=== PATIENT | male | born 1955 ===

== ENCOUNTER 2016-03-01 06:04 | Outpatient (CLI) | payer BC, OTHER ==
[~2016-03-01] VITALS: Ht 167.6 cm; Wt 84.5 kg
[~2016-03-01 06:04] MED LIST: CPR500T PO
== END 2016-03-01 13:42 ==
LOC: PREOP 06:04
PROVIDERS: ATTEND Surgery
DX: Z01.818 Encounter for other preprocedural examination (principal); K57.90 Diverticulosis of intestine, part unspecified, without perforation or abscess without bleeding

== ENCOUNTER 2016-03-05 14:06 | Day surgery (SDC) | payer BC, OTHER ==
[~2016-03-05] VITALS: Ht 167.6 cm; Wt 84.5 kg
--- NOTE | 2016-03-05 14:09 | Pre-Op Note & Conscious Sedat ---
Pre-Operative Progress Note H&P Reviewed The H&P was reviewed, patient examined and no changes noted. Date H&P Reviewed: Mar 05, 2016 Time H&P Reviewed: 14:09 Pre-Op Diagnosis: colovesical fistula Conscious Sedation Pre-Proced ASA Class: 2 Airway Mallampati Classification: (jena appropriate class) I. II. III, IV Lungs Heart ASA score ASA 1: a normal healthy patient ASA 2: a patient with a mild systemic disease (mid diabetes, controlled hypertension, obesity ASA 3: a patient with a severe systemic disease that limits activity (angina , COPD, prior Myocardial infarction) ASA 4: a patient with an incapacitating disease that is a constant threat to life (CHF, renal failure) ASA 5: a moribund patient not expected to survive 24 hrs. (ruptured aneurysm) ASA 6: a declared brain patient whose organs are being harvested. For emergent operations, add the letter E after the classification Grade 1 Sedation Plan: Discussed options with patient/fam Note The patient is an appropriate candidate to undergo the planned procedure, sedation, and anesthesia. The patient immediately re-assessed prior to indication. CLARKE SORIANO MD Mar 05, 2016 2:09 pm
[2016-03-05] MEDS ORDERED: fentaNYL INJECTION 100 MCG/2 ML AMP INJ ONE ×2 (14:14)
[2016-03-05] MEDS ORDERED: NS IV 500 ML 500 ML IV ONE (14:15)
[2016-03-05] MEDS ORDERED: NALOXONE 0.4 MG/ML 1 ML (NARCAN) VIAL IVP PRN (14:15)
[2016-03-05] MEDS ORDERED: FLUMAZENIL (ROMAZICON) 0.1 MG/ML 5 ML VIAL INJ PRN (14:15)
[2016-03-05 14:35] VITALS: BP 161/113
[2016-03-05] MEDS: MIDAZOLAM 2 MG/2 ML (VERSED) VIAL IVP PRN ×3 (14:43→14:55)
[2016-03-05] MEDS: fentaNYL INJECTION 100 MCG/2 ML AMP IVP PRN ×3 (14:45→14:57)
--- NOTE | 2016-03-05 15:09 | Discharge Inst-Simple/Standard ---
Discharge Inst-Standard Discharge Medications New, Converted or Re-Newed RX: Other Patient Instructions/Follow Up Plan of Care/Instructions/FU: to return for surgery as directed Activity as Tolerated: Yes Discharge Diet: No Restrictions CLARKE SORIANO MD Mar 05, 2016 3:09 pm
--- NOTE | 2016-03-05 15:09 | Progress Note-Post Operative ---
Post-Operative Progess Note Pre-Operative Diagnosis colovesical fistula Post-Operative Diagnosis severe sigmoid diverticulosis Post-Op Procedure Note Date of Procedure: Mar 05, 2016 Name of Procedure: flexible sigmoidoscopy Anesthesia Type sedation CLARKE SORIANO MD Mar 05, 2016 3:09 pm
[2016-03-05 15:30] VITALS: BP 102/78
[2016-03-05 16:00] VITALS: BP 122/82
[2016-03-05 16:09] VITALS: BP 122/82
--- NOTE | 2016-03-06 09:03 | PROCEDURE REPORT ---
PROCEDURE PHYSICIAN: CLARKE SORIANO DATE OF PROCEDURE: 03/05/2016 PROCEDURE: Flexible sigmoidoscopy. SURGEON: Dr. Soriano. INDICATION FOR THE PROCEDURE: This gentleman is due to undergo sigmoid resection to manage colovesical fistula due to diverticular disease. He came in for colonoscopy prior to surgery. Informed consent was obtained after reviewing the procedure with him. DESCRIPTION OF PROCEDURE: He was placed in left lateral decubitus position and his vital signs were monitored. Conscious sedation was achieved using Versed and fentanyl. Digital rectal examination was unremarkable. The colonoscope was then introduced into the rectum and advanced to the mid sigmoid colon. Due to severe diverticular disease, the scope could not be advanced further. Therefore, further attempts were abandoned. He tolerated the procedure well and was taken back to the nursing area in a stable condition. IMPRESSION: Colovesical fistula, flexible sigmoidoscopy revealing severe disease. NOTE: The patient is scheduled to undergo minimally invasive resection with anastomosis and a potential temporary loop ileostomy. Job ID: [id number] Dictated Date: 03/05/2016 15:07:59 Location Director Date: 03/06/2016 08:58:51 / didi HUI
== END 2016-03-05 16:10 | disposition home or self-care (01) ==
LOC: SDC 14:06
PROVIDERS: ATTEND Surgery
DX: K63.2 Fistula of intestine (principal); K57.30 Diverticulosis of large intestine without perforation or abscess without bleeding

== ENCOUNTER 2016-03-05 14:10 | Outpatient (CLI) | payer BC, OTHER ==
[~2016-03-05] VITALS: Ht 167.6 cm; Wt 84.5 kg
[2016-03-05 14:50] VITALS: BP 161/113
[2016-03-05 14:57] LABS: BASOPHILS % (AUTO) 0 % (0-10); EOSINOPHILS # (AUTO) 0.5 10^3/uL (0.0-0.3); EOSINOPHILS % (AUTO) 4 % (0-10); LYMPHOCYTES # (AUTO) 4.2 X 10^3 (1.0-4.0); LYMPHOCYTES % (AUTO) 34 % (12-44); MEAN CORPUSCULAR HEMOGLOBIN 29 PG (25-34); MEAN CORPUSCULAR HGB CONC 35 G/DL (32-36); MEAN CORPUSCULAR VOLUME 85 FL (80-99); MEAN PLATELET VOLUME 11.3 FL (7.4-10.4); MONOCYTES # (AUTO) 0.9 X 10^3 (0.0-1.0); MONOCYTES % (AUTO) 8 % (0-12); NEUTROPHILS # (AUTO) 6.8 X 10^3 (1.8-7.8); NEUTROPHILS % (AUTO) 55 % (42-75); PLATELET COUNT 208 10^3/uL (130-400); RED BLOOD COUNT 5.93 10^6/uL (4.35-5.85); RED CELL DISTRIBUTION WIDTH 13.4 % (10.0-14.5); WHITE BLOOD COUNT 12.4 10^3/uL (4.3-11.0)
[2016-03-05 15:14] LABS: ALANINE AMINOTRANSFERASE 17 U/L (0-55); ALBUMIN 4.3 G/DL (3.2-4.5); ANION GAP 10 MMOL/L (5-14); ASPARTATE AMINO TRANSFERASE 13 U/L (5-34); BILIRUBIN,TOTAL 0.7 MG/DL (0.1-1.0); BLOOD UREA NITROGEN 14 MG/DL (7-18); BUN/CREATININE RATIO 13; CALCIUM 9.7 MG/DL (8.5-10.1); CARBON DIOXIDE 24 MMOL/L (21-32); CHLORIDE 102 MMOL/L (98-107); CREATININE SERUM 1.04 MG/DL (0.60-1.30); GFR ESTIMATED > 60; GLUCOSE 189 MG/DL (70-105); POTASSIUM 4.3 MMOL/L (3.6-5.0); SODIUM 136 MMOL/L (135-145); TOTAL PROTEIN 8.2 G/DL (6.4-8.2)
== END 2016-03-05 14:35 | disposition home or self-care (01) ==
LOC: PREOP 14:10
PROVIDERS: ATTEND Surgery
DX: Z01.812 Encounter for preprocedural laboratory examination (principal); Z11.2 Encounter for screening for other bacterial diseases; K80.20 Calculus of gallbladder without cholecystitis without obstruction; K63.2 Fistula of intestine; K57.30 Diverticulosis of large intestine without perforation or abscess without bleeding
CPT/HCPCS: 36415; 80053; 85025; 87081

== ENCOUNTER 2016-03-21 06:00 | Inpatient (IN) | payer BC, OTHER ==
[~2016-03-21] VITALS: Ht 167.6 cm; Wt 76.1 kg
[2016-03-21] VITALS (12 sets, daily range): BP systolic 92–131; BP diastolic 65–110
[2016-03-21] MEDS ORDERED: NORMAL SALINE (BAXTER MINI) 50 ML IV ONE (06:08)
[2016-03-21] MEDS ORDERED: ceFAZolin 1,000 MG (ANCEF) VIAL ONE ×3 (06:08→16:01)
[2016-03-21] MEDS ORDERED: metroNIDAZOLE 500MG/100ML IVPB 100 ML ONE (06:09)
[2016-03-21] MEDS: LACTATED RINGERS 1,000 ML IV PRN ×5 (06:30→15:06)
[2016-03-21] MEDS ORDERED: proPOfol 200 MG/20 ML (DIPRIVAN) VIAL IV ONE (06:59)
[2016-03-21] MEDS ORDERED: ROCURONIUM 50 MG/5 ML (ZEMURON) VIAL IV ONE ×4 (06:59→12:16)
[2016-03-21] MEDS ORDERED: LIDOCAINE PF 2% 10 ML (XYLOCAINE) AMP ONE (06:59)
[2016-03-21] MEDS ORDERED: SEVOFLURANE (ULTANE) 15 ML INHAL SOLN ONE ×12 (06:59→16:05)
[2016-03-21] MEDS ORDERED: ONDANSETRON 4 MG/2 ML (SDV) Z0FRAN ONE ×2 (06:59→15:53)
[2016-03-21] MEDS ORDERED: fentaNYL INJECTION 250 MCG/5 ML AMP ONE ×2 (06:59→13:01)
[2016-03-21] MEDS ORDERED: DEXAMETHASONE PF 10 MG/ML (DECADRON) VIAL ONE (06:59)
[2016-03-21] MEDS ORDERED: MIDAZOLAM 2 MG/2 ML (VERSED) VIAL IV ONE (07:00)
[2016-03-21] MEDS ORDERED: ceFAZolin 1 GM/NS 50 ML IVPB IV ONE ×2 (07:15)
[2016-03-21] MEDS ORDERED: metroNIDAZOLE 500 MG/100 ML IVPB (PRE-MIX) IV ONE (07:15)
[2016-03-21] MEDS ORDERED: BUP/EPI 0.25% 1:200,000 (MARCAINE) 30 ML VIAL ONE ×2 (07:34→15:06)
[2016-03-21] MEDS ORDERED: HEParin (CENTRAL IV FLUSH) 500 UNIT/5 ML SYR ONE (07:50)
--- NOTE | 2016-03-21 07:50 | Progress Note-Pre Operative ---
Pre-Operative Progress Note H&P Reviewed The H&P was reviewed, patient examined and no changes noted. Date H&P Reviewed: Mar 21, 2016 Time H&P Reviewed: 07:50 Pre-Operative Diagnosis: Colovesical Fistula. Gallstones CLARKE SORIANO MD Mar 21, 2016 7:50 am
[2016-03-21] MEDS ORDERED: LACTATED RINGERS 1,000 ML IV ONE ×4 (08:24→15:14)
[2016-03-21] MEDS ORDERED: PHENYLEPHRINE 100 MCG/ML 10 ML (ANESTHESIA) SYR ONE (08:47)
[2016-03-21] MEDS ORDERED: PHENYLEPHRINE INJ 10 MG/ML (NEO-SYNEPHRINE 1%) ONE (13:17)
[2016-03-21] MEDS ORDERED: NS (IVPB) 100 ML ONE (13:17)
[2016-03-21] MEDS ORDERED: metroNIDAZOLE 500MG/100ML IVPB 0 ML ONE (13:32)
[2016-03-21] MEDS ORDERED: METHYLENE BLUE 1% INJ 1 ML AMP ONE (14:25)
[2016-03-21] MEDS ORDERED: metroNIDAZOLE 500MG/100ML IVPB 100 ML IV ONE (14:30)
[2016-03-21] MEDS ORDERED: GLYCOPYRROLATE 0.2 MG/ML (ROBINUL) 2 ML VIAL ONE ×2 (14:55→15:14)
[2016-03-21] MEDS ORDERED: NEOSTIGMINE (BLOXIVERZ ) 1 MG/1ML 10 ML VIAL ONE (14:55)
--- NOTE | 2016-03-21 15:51 | Progress Note-Post Operative ---
Post-Operative Progess Note Pre-Operative Diagnosis Colovesical Fistula. Gallstones Post-Operative Diagnosis sAME Post-Op Procedure Note Date of Procedure: Mar 21, 2016 Name of Procedure: 1. Central line 2. Robotic-converted to open Left hemicolectomy with anastamosis 3. Cholecystectomy Anesthesia Type Gen Estimated blood loss (mL): 100 Specimen(s) collected Left colon and GB CLARKE SORIANO MD Mar 21, 2016 3:51 pm
[2016-03-21] MEDS ORDERED: morphine INJ 10 MG/ML 1ML (SYR OR VIAL) ONE (15:53)
[2016-03-21] MEDS ORDERED: HYDROmorphone (DILAUDID) 2 MG/ML VIAL ONE (15:53)
[2016-03-21] MEDS ORDERED: LACTATED RINGERS 1,000 ML IV PRN (15:53)
[2016-03-21] MEDS ORDERED: fentaNYL INJECTION 100 MCG/2 ML AMP IV PRN (16:00)
[2016-03-21] MEDS ORDERED: metroNIDAZOLE 500MG/100ML IVPB 100 ML IV SCH (16:00)
[2016-03-21] MEDS ORDERED: ceFAZolin INJECTION 1,000 MG in NS (IVPB) 50 ML IV ONE (16:15)
[2016-03-21] MEDS: morphine INJ 10 MG/ML 1ML (SYR OR VIAL) IVP PRN ×2 (16:27→17:00)
[2016-03-21] MEDS ORDERED: PROMETHAZINE INJ 25 MG/ML (PHENERGAN) AMP IVP PRN (16:45)
[2016-03-21] MEDS ORDERED: fentaNYL INJECTION 100 MCG/2 ML AMP IVP PRN (16:45)
[2016-03-21] MEDS ORDERED: ONDANSETRON 4 MG/2 ML (SDV) Z0FRAN IVP PRN (16:45)
[2016-03-21] MEDS ORDERED: MEPERIDINE (DEMEROL) INJ 50 MG/ML IVP PRN (16:45)
--- NOTE | 2016-03-21 17:11 | Diagnostic Imaging Report ---
Clinical indication: Postintubation. Exam: Portable chest x-ray supine view. Comparison: None. Findings: ET tube is seen with tip roughly 6.5 cm from the expected region of the jona. Central line is seen overlying the left chest with tip in the distal superior vena cava. There is mild left basilar atelectasis and/or infiltrate. There is blunting of the left costophrenic angle which may represent a small pleural effusion. There is minimal amount of subcutaneous air overlying the left lower hemithorax region. There is a shadow seen overlying the left lung apex concerning for a small apical left pneumothorax. Right lung is clear. Pulmonary vasculature and cardiac silhouette are within normal limits. Bones show no significant abnormality. IMPRESSION: 1: Minimal sized left apical pneumothorax. There is minimal amount of subcutaneous air overlying the inferior left hemithorax region. 2: There is left lung base atelectasis and/or infiltrate and small left pleural effusion. 3: Left central line is seen with tip in the distal superior vena cava. ET tube is in good position. Results of this report were discussed with Flavia, the nurse taking care of the patient in the ICU, via the telephone on 03/21/2016 at 1705 hours. Dictated by: Dictated on workstation # [id number]
[2016-03-21] MEDS: LACTATED RINGERS 1,000 ML IV SCH ×2 (19:47→22:38)
[2016-03-21] MEDS: ceFAZolin INJECTION 1,000 MG in NS (IVPB) 50 ML IV SCH (21:11)
[2016-03-21] MEDS: metroNIDAZOLE 500MG/100ML IVPB 100 ML IV SCH (21:12)
[2016-03-21] MEDS: fentaNYL INJECTION 100 MCG/2 ML AMP IVP PRN (23:52)
[2016-03-22] VITALS (22 sets, daily range): BP systolic 111–164; BP diastolic 74–114
[2016-03-22] MEDS: fentaNYL INJECTION 100 MCG/2 ML AMP IVP PRN ×8 (04:29→22:36)
[2016-03-22] MEDS: metroNIDAZOLE 500MG/100ML IVPB 100 ML IV SCH (04:35)
[2016-03-22 04:57] LABS: BASOPHILS % (AUTO) 0 % (0-10); EOSINOPHILS % (AUTO) 0 % (0-10); LYMPHOCYTES # (AUTO) 1.4 X 10^3 (1.0-4.0); LYMPHOCYTES % (AUTO) 10 % (12-44); MEAN CORPUSCULAR HEMOGLOBIN 30 PG (25-34); MEAN CORPUSCULAR HGB CONC 34 G/DL (32-36); MEAN CORPUSCULAR VOLUME 88 FL (80-99); MEAN PLATELET VOLUME 10.9 FL (7.4-10.4); MONOCYTES # (AUTO) 1.3 X 10^3 (0.0-1.0); MONOCYTES % (AUTO) 10 % (0-12); NEUTROPHILS # (AUTO) 11.2 X 10^3 (1.8-7.8); NEUTROPHILS % (AUTO) 80 % (42-75); PLATELET COUNT 168 10^3/uL (130-400); RED BLOOD COUNT 4.41 10^6/uL (4.35-5.85); RED CELL DISTRIBUTION WIDTH 13.5 % (10.0-14.5); WHITE BLOOD COUNT 13.9 10^3/uL (4.3-11.0)
[2016-03-22] MEDS: ceFAZolin INJECTION 1,000 MG in NS (IVPB) 50 ML IV SCH (05:15)
[2016-03-22 05:25] LABS: ANION GAP 10 MMOL/L (5-14); BLOOD UREA NITROGEN 20 MG/DL (7-18); BUN/CREATININE RATIO 18; CALCIUM 7.8 MG/DL (8.5-10.1); CARBON DIOXIDE 23 MMOL/L (21-32); CHLORIDE 105 MMOL/L (98-107); CREATININE SERUM 1.12 MG/DL (0.60-1.30); GFR ESTIMATED > 60; GLUCOSE 313 MG/DL (70-105); PHOSPHORUS 2.3 MG/DL (2.3-4.7); POTASSIUM 4.4 MMOL/L (3.6-5.0); SODIUM 138 MMOL/L (135-145)
[2016-03-22] MEDS: MAGNESIUM 1 GM/100 ML IVPB 100 ML IV SCH (05:38)
[2016-03-22] MEDS: POTASSIUM CL 10MEQ/50ML IVPB 50 ML IV SCH (05:38)
[2016-03-22] MEDS: KCL 20 MEQ TAB (K-DUR) PO SCH (05:39)
[2016-03-22] MEDS: LACTATED RINGERS 1,000 ML IV SCH ×3 (05:51→22:37)
[2016-03-22] MEDS: PANTOPRAZOLE 40 MG/10 ML (PROTONIX) VIAL IVP SCH (09:12)
[2016-03-22] MEDS: ONDANSETRON 4 MG/2 ML (SDV) Z0FRAN IVP PRN ×2 (09:12→15:42)
--- NOTE | 2016-03-22 13:25 | OPERATIVE REPORT ---
PROCEDURE PHYSICIAN: CLARKE SORIANO DATE OF PROCEDURE: 03/21/2016 PREOPERATIVE DIAGNOSIS: 1. Colovesical fistula. 2. Gallstones POSTOPERATIVE DIAGNOSIS: 1. Colovesical fistula. 2. Gallstones. OPERATION: 1. Central venous catheter placement. 2. Robotic, converted to open left hemicolectomy with primary anastomosis. 3. Mobilization of splenic flexure. 4. Open cholecystectomy. SURGEON: Alexei ANESTHESIA: General anesthesia. BLOOD LOSS: 100 mL. FLUIDS: 4 liters of crystalloids. TYPE OF WOUND: Type III (contaminate wound). INDICATION FOR THE PROCEDURE: This gentleman presented with a colovesical fistula possibly due to sigmoid diverticular disease. In addition, incidental gallstones were also discovered. He was initially offered sigmoid resection with anastomosis using minimally invasive technique and robotic assistance. Concomitant cholecystectomy was also offered. The potential for temporary loop ileostomy and the possibility of conversion to an open laparotomy were also discussed with him. Informed consent was obtained after reviewing the operative details and complications of postop wound infection, anastomotic leak, intra-abdominal abscess and cardiorespiratory dysfunction. DESCRIPTION OF PROCEDURE: He underwent mechanical bowel preparation including oral antibiotics the day before surgery. He was placed supine on the operating table and general anesthesia induced. Ancef and Flagyl were administered intravenously as prophylaxis against wound infection. A second dose of the Ancef was administered 4 hours into the operation. Sequential compression devices were placed around his legs, to minimize the risk of venous thrombosis. 1. CENTRAL VENOUS CATHETER PLACEMENT: He was placed in Trendelenburg position and his left infraclavicular fossa prepared and draped in the usual sterile manner. Subclavian vein was accessed and a floppy guidewire introduced into the heart. Subcutaneous tract was gently dilated using a silastic sheath and a triple-lumen central venous catheter advanced using Seldinger technique. All the channels were aspirated and flushed with heparinized saline and the catheter was secured using a silk suture. A dressing was then applied. 2. ROBOTIC/CONVERTED TO OPEN LEFT HEMICOLECTOMY WITH ANASTOMOSIS/CHOLECYSTECTOMY: Abdomen was prepared and draped in the usual sterile manner. His legs were supported on stirrups, to achieve access to the rectum, in anticipation of an EEA anastomosis. As would be described during the later part of the operating note, we were able to perform an intra-abdominal anastomosis using a ZENIA stapler. Pneumoperitoneum was established using a Veress needle introduced superolateral to the umbilicus along the right side. Intra-abdominal pressure was maintained at 15 mmHg. A 12 mm trocar was placed and anatomy visualized using the 3 dimensional, high definition laparoscope associated with da Olivia system. Under direct view, a 12 mm stapler port was placed over the right lower quadrant followed by two 8 mm trocars over the subcostal region on the left side and the left side of the abdomen along the midaxillary line. A 5 mm trocar was placed over the right side of the abdomen to facilitate using an assistance grasper. The patient was then turned in the Trendelenburg position with the left side tilted up. The robotic system was docked into place. Laparoscopic survey confirmed a large phlegmon involving the proximal sigmoid colon and the bladder. The descending colon was held up using the robotic grasper and a medial to lateral dissection performed using the vessel sealing device. Left ureter was identified and kept out of harm's way. Mesocolon was taken down using the vessel sealing device followed by division of the distal end of the inferior mesenteric artery. Dissection was continued down into the pelvis along the right mesorectum. Proximal rectum was then transected using a robotic 3.5 mm stapler. The phlegmon was then from the bladder using hook cautery. The distal descending colon was then transected using the same stapling device. Descending colon was then mobilized proximally using a combination of hook cautery and the vessel sealing device. Multiple attempts to complete mobilization around the splenic flexure were unsuccessful mainly due to poor view. Therefore I elected to convert to an open procedure. A midline incision was made and abdomen entered safely. Mid transverse colon was using Harmonic scalpel continuing laterally around the splenic flexure. It became clear that using the transverse colon for the anastomosis would be healthier, mainly from perfusion standpoint. Therefore, transverse colon was transected using a ZENIA stapler and released from the greater omentum. It was then brought down into the pelvis and a [id number] anastomosis created using a ZENIA-75 stapling device. The colotomy was closed using a TA-60 stapling device. A 3-0 silk suture was placed along the crotch of the anastomosis to avoid any tension on the anastomosis. Hemostasis was satisfactory. We then turned our attention to the gallbladder. The fundus was retracted cephalad and the infundibulum grasped with another pair of forceps. Peritoneum overlying Calot's triangle was incised and a fundus first technique of cholecystectomy performed. The cystic artery was controlled using Harmonic scalpel and the cystic duct controlled using a combination of 2-0 Vicryl suture and a PDS Endoloop. Abdominal cavity was thoroughly irrigated with copious amounts of warm saline. Fascia was closed using number 2 Prolene and subcutaneous tissue with 3-0 Vicryl. The skin was closed using 4-0 Vicryl, in a subcuticular fashion. 0.25% Marcaine with epinephrine was infiltrated along the incisions, both preemptively and at the conclusion of the operation. He tolerated the procedure well and was taken to the Intensive Care Unit in an intubated, stable condition. [place], sponges, and instruments were correct at the end of the operation. Job ID: [id number] Dictated Date: 03/21/2016 15:51:24 Pbx Mechanic Date: 03/22/2016 13:07:45 / berry HUI
--- NOTE | 2016-03-22 14:28 | Anesthesia-General Post-Op ---
General Patient Condition Mental Status/LOC: Same as Preop Cardiovascular: Satisfactory Nausea/Vomiting: Absent Respiratory: Satisfactory Pain: Controlled Complications: Absent Post Op Complications Complications None Follow Up Care/Instructions Patient Instructions None needed. Anesthesia/Patient Condition Patient Condition Patient is doing well, no complaints, stable vital signs, no apparent adverse anesthesia problems. No complications reported per nursing. NAVI WEBBER CRNA Mar 22, 2016 14:28
--- NOTE | 2016-03-22 16:37 | Progress Note-Standard ---
Standard Progress Note Progress Notes/Assess & Plan Progress/Assessment & Plan 03/22/16"uneventful postoperative night. Pain control reasonable. 4 motivation with incentive spirometry encouraged. Vital signs stable. Will continue ICU care for 24 hours. Byers catheter to stay for 2 weeks due to colovesical fistula. Cystogram will be obtained at the end of 2 weeks before catheter is removed. will be transferred the floor tomorrow Final Diagnosis colovesical fistula. Cholelithiasis CLARKE SORIANO MD Mar 22, 2016 4:37 pm
[2016-03-22] MEDS ORDERED: ONDANSETRON 4 MG/2 ML (SDV) Z0FRAN IVP NR (17:00)
[2016-03-22] MEDS ORDERED: PROMETHAZINE INJ 25 MG/ML (PHENERGAN) AMP IVP PRN (17:00)
[2016-03-22] MEDS: METOCLOPRAMIDE INJ 10 MG/2 ML (REGLAN) IVP SCH (18:53)
[2016-03-22] MEDS: ENOXAPARIN 40 MG/0.4 ML (LOVENOX) SYR SC SCH (18:54)
[2016-03-23] VITALS (23 sets, daily range): BP systolic 117–199; BP diastolic 84–129
[2016-03-23] MEDS: fentaNYL INJECTION 100 MCG/2 ML AMP IVP PRN ×10 (00:15→23:25)
[2016-03-23] MEDS: METOCLOPRAMIDE INJ 10 MG/2 ML (REGLAN) IVP SCH ×5 (00:15→23:27)
[2016-03-23] MEDS: ONDANSETRON 4 MG/2 ML (SDV) Z0FRAN IVP PRN ×3 (01:18→14:38)
[2016-03-23 04:30] LABS: BASOPHILS % (AUTO) 0 % (0-10); EOSINOPHILS % (AUTO) 0 % (0-10); LYMPHOCYTES # (AUTO) 1.5 X 10^3 (1.0-4.0); LYMPHOCYTES % (AUTO) 15 % (12-44); MEAN CORPUSCULAR HEMOGLOBIN 30 PG (25-34); MEAN CORPUSCULAR HGB CONC 34 G/DL (32-36); MEAN CORPUSCULAR VOLUME 87 FL (80-99); MEAN PLATELET VOLUME 10.7 FL (7.4-10.4); MONOCYTES # (AUTO) 1.2 X 10^3 (0.0-1.0); MONOCYTES % (AUTO) 12 % (0-12); NEUTROPHILS # (AUTO) 7.4 X 10^3 (1.8-7.8); NEUTROPHILS % (AUTO) 73 % (42-75); PLATELET COUNT 166 10^3/uL (130-400); RED CELL DISTRIBUTION WIDTH 13.4 % (10.0-14.5); WHITE BLOOD COUNT 10.1 10^3/uL (4.3-11.0)
[2016-03-23 05:06] LABS: ANION GAP 10 MMOL/L (5-14); BLOOD UREA NITROGEN 18 MG/DL (7-18); BUN/CREATININE RATIO 19; CALCIUM 8.6 MG/DL (8.5-10.1); CARBON DIOXIDE 24 MMOL/L (21-32); CHLORIDE 103 MMOL/L (98-107); CREATININE SERUM 0.97 MG/DL (0.60-1.30); GFR ESTIMATED > 60; GLUCOSE 267 MG/DL (70-105); MAGNESIUM 2.2 MG/DL (1.8-2.4); PHOSPHORUS 2.1 MG/DL (2.3-4.7); POTASSIUM 4.3 MMOL/L (3.6-5.0); SODIUM 137 MMOL/L (135-145)
[2016-03-23] MEDS: LACTATED RINGERS 1,000 ML IV SCH ×4 (05:50→23:27)
[2016-03-23] MEDS: KCL 20 MEQ TAB (K-DUR) PO SCH (05:52)
[2016-03-23] MEDS: MAGNESIUM 1 GM/100 ML IVPB 100 ML IV SCH (05:52)
[2016-03-23] MEDS: POTASSIUM CL 10MEQ/50ML IVPB 50 ML IV SCH (05:52)
--- NOTE | 2016-03-23 07:21 | Diagnostic Imaging Report ---
Portable upright radiograph of the chest. INDICATION: Followup shortness of breath. FINDINGS: There is bibasilar atelectasis or infiltrate. Low lung volumes seen. There is suggestion of a small left pleural effusion. The left pneumothorax is not visualized at this time. The heart size is mildly enlarged. There is a left subclavian venous line with the tip at the SVC level. IMPRESSION: Low lung volumes with bibasilar atelectasis or infiltrates. Small left pleural effusion. Dictated by: Dictated on workstation # [id number]
[2016-03-23] MEDS: PANTOPRAZOLE 40 MG/10 ML (PROTONIX) VIAL IVP SCH (09:01)
--- NOTE | 2016-03-23 09:01 | Progress Note-Standard ---
Standard Progress Note Progress Notes/Assess & Plan Progress/Assessment & Plan 03/22/16"uneventful postoperative night. Pain control reasonable. 4 motivation with incentive spirometry encouraged. Vital signs stable. Will continue ICU care for 24 hours. Byers catheter to stay for 2 weeks due to colovesical fistula. Cystogram will be obtained at the end of 2 weeks before catheter is removed. will be transferred the floor tomorrow 03/23/16:nnausea and vomiting early this morning. No abdominal distention. Vital signs stable. Incisions dry. TPN today, postoperative ileus anticipated. Continue Reglan and transferred to the floor Final Diagnosis colovesical fistula. Gallstones CLARKE SORIANO MD Mar 23, 2016 9:01 am
[2016-03-23] MEDS ORDERED: POTASSIUM PHOSPHATE INJ 30 MM in NS (IVPB) 250 ML IV NR (09:15)
[2016-03-23] MEDS ORDERED: TPN IV SCH (09:30)
[2016-03-23] MEDS: inSUlin (REGULAR) HUMAN 1 UNIT/0.01 ML (CHARGE PER UNIT) SC SCH ×3 (13:57→23:32)
[2016-03-23] MEDS: LABETALOL HCL 20 MG/4 ML VIAL IV PRN ×2 (14:04→17:19)
[2016-03-23] MEDS: ENOXAPARIN 40 MG/0.4 ML (LOVENOX) SYR SC SCH (16:24)
[2016-03-23] MEDS ORDERED: SODIUM CHLORIDE 14.6% INJ 30 MEQ, SODIUM ACETATE INJ 50 MEQ, POTASSIUM CHLORIDE INJ 85 ... IV SCH ×12 (17:00)
[2016-03-23] MEDS ORDERED: FLU TRIvalent (5 YOA+) 2016-17 (AFLURIA) 0.5 ML IM ONE (19:30)
[2016-03-24] VITALS (19 sets, daily range): BP systolic 119–153; BP diastolic 78–117
[2016-03-24] MEDS: fentaNYL INJECTION 100 MCG/2 ML AMP IVP PRN ×6 (02:43→19:46)
[2016-03-24] MEDS: ONDANSETRON 4 MG/2 ML (SDV) Z0FRAN IVP PRN ×2 (04:52→20:00)
[2016-03-24 05:00] LABS: BASOPHILS % (AUTO) 0 % (0-10); EOSINOPHILS # (AUTO) 0.2 10^3/uL (0.0-0.3); EOSINOPHILS % (AUTO) 2 % (0-10); LYMPHOCYTES # (AUTO) 1.6 X 10^3 (1.0-4.0); LYMPHOCYTES % (AUTO) 23 % (12-44); MEAN CORPUSCULAR HEMOGLOBIN 30 PG (25-34); MEAN CORPUSCULAR HGB CONC 33 G/DL (32-36); MEAN CORPUSCULAR VOLUME 89 FL (80-99); MEAN PLATELET VOLUME 10.3 FL (7.4-10.4); MONOCYTES % (AUTO) 14 % (0-12); NEUTROPHILS # (AUTO) 4.4 X 10^3 (1.8-7.8); NEUTROPHILS % (AUTO) 61 % (42-75); PLATELET COUNT 154 10^3/uL (130-400); RED CELL DISTRIBUTION WIDTH 13.4 % (10.0-14.5); WHITE BLOOD COUNT 7.2 10^3/uL (4.3-11.0)
[2016-03-24 05:23] LABS: ALANINE AMINOTRANSFERASE 15 U/L (0-55); ALBUMIN 2.7 G/DL (3.2-4.5); ANION GAP 8 MMOL/L (5-14); ASPARTATE AMINO TRANSFERASE 16 U/L (5-34); BILIRUBIN,TOTAL 0.6 MG/DL (0.1-1.0); BLOOD UREA NITROGEN 17 MG/DL (7-18); BUN/CREATININE RATIO 24; CALCIUM 7.4 MG/DL (8.5-10.1); CARBON DIOXIDE 23 MMOL/L (21-32); CHLORIDE 110 MMOL/L (98-107); CREATININE SERUM 0.72 MG/DL (0.60-1.30); GFR ESTIMATED > 60; GLUCOSE 184 MG/DL (70-105); MAGNESIUM 1.8 MG/DL (1.8-2.4); PHOSPHORUS 1.9 MG/DL (2.3-4.7); POTASSIUM 3.3 MMOL/L (3.6-5.0); SODIUM 141 MMOL/L (135-145); TOTAL PROTEIN 5.2 G/DL (6.4-8.2)
[2016-03-24] MEDS: MAGNESIUM 1 GM/100 ML IVPB 100 ML IV SCH (05:26)
[2016-03-24] MEDS: KCL 20 MEQ TAB (K-DUR) PO SCH (05:26)
[2016-03-24] MEDS: METOCLOPRAMIDE INJ 10 MG/2 ML (REGLAN) IVP SCH ×3 (06:14→17:43)
[2016-03-24] MEDS: inSUlin (REGULAR) HUMAN 1 UNIT/0.01 ML (CHARGE PER UNIT) SC SCH ×3 (06:15→17:43)
[2016-03-24] MEDS: POTASSIUM CL 10MEQ/50ML IVPB 50 ML IV SCH ×5 (06:15→07:59)
[2016-03-24] MEDS ORDERED: SODIUM PHOSPHATE INJ 45 MM in NS (IVPB) 250 ML INJ ONE (09:51)
[2016-03-24] MEDS: PANTOPRAZOLE 40 MG/10 ML (PROTONIX) VIAL IVP SCH (09:58)
--- NOTE | 2016-03-24 10:24 | Diagnostic Imaging Report ---
INDICATION: Shortness of breath COMPARISON: 03/23/16 FINDINGS: Single view of the chest demonstrates dependent atelectasis with trace effusion left base. There is no pneumothorax. The heart is prominent without pulmonary edema. Central line is stable. IMPRESSION: Unchanged aeration of the lungs. Dictated by: Dictated on workstation # [id number]
--- NOTE | 2016-03-24 10:34 | Diagnostic Imaging Report ---
INDICATION: NG tube placement. DATE: 03/24/2016 at 5:03 a.m. FINDINGS: Single view of the chest demonstrates NG tube in the stomach. The side holes are at the GE junction. Consider advancing approximately 5-6 cm. IMPRESSION: Tip of the NG tube is just within the stomach. Advanced 5 to 6 cm. Dictated by: Dictated on workstation # [id number]
--- NOTE | 2016-03-24 13:58 | Progress Note-Standard ---
Standard Progress Note Progress Notes/Assess & Plan Progress/Assessment & Plan 03/22/16"uneventful postoperative night. Pain control reasonable. 4 motivation with incentive spirometry encouraged. Vital signs stable. Will continue ICU care for 24 hours. Byers catheter to stay for 2 weeks due to colovesical fistula. Cystogram will be obtained at the end of 2 weeks before catheter is removed. will be transferred the floor tomorrow 03/23/16:nnausea and vomiting early this morning. No abdominal distention. Vital signs stable. Incisions dry. TPN today, postoperative ileus anticipated. Continue Reglan and transferred to the floor 03/24/16:recurrent vomiting of large volumes of bilious fluid. Postoperative ileus versus early small bowel obstruction. Nasogastric tube placed returning bile stained contents. Erythema around the incision. We will use antibiotics in anticipation of wound infection. Continue TPN. Hypokalemia, being corrected. Final Diagnosis colovesical fistula. CLARKE SORIANO MD Mar 24, 2016 1:58 pm
[2016-03-24] MEDS ORDERED: PIPERACILLIN SODIUM/TAZOBACTAM 4.5 GM in NS (IVPB) 100 ML IV SCH (14:00)
[2016-03-24] MEDS ORDERED: PIPERACILLIN SODIUM/TAZOBACTAM 4.5 GM in NS (IVPB) 100 ML IV NR (14:30)
[2016-03-24] MEDS: LACTATED RINGERS 1,000 ML IV SCH ×2 (15:12→17:00)
[2016-03-24] MEDS ORDERED: SODIUM CHLORIDE IV SCH ×12 (17:00)
[2016-03-24] MEDS ORDERED: SODIUM ACETATE IV SCH ×12 (17:00)
[2016-03-24] MEDS ORDERED: [UNRECOGNIZED DRUG - OTHER] IV SCH ×12 (17:00)
[2016-03-24] MEDS: ENOXAPARIN 40 MG/0.4 ML (LOVENOX) SYR SC SCH (17:04)
[2016-03-24] MEDS: PIPERACILLIN SODIUM/TAZOBACTAM 4.5 GM in NS (IVPB) 100 ML IV SCH (20:31)
[2016-03-25] VITALS: BP 146/94
[2016-03-25] MEDS: METOCLOPRAMIDE INJ 10 MG/2 ML (REGLAN) IVP SCH ×5 (00:15→23:56)
[2016-03-25 04:00] VITALS: BP 156/98
[2016-03-25] MEDS: PIPERACILLIN SODIUM/TAZOBACTAM 4.5 GM in NS (IVPB) 100 ML IV SCH ×3 (04:25→19:31)
[2016-03-25 05:15] LABS: BASOPHILS % (AUTO) 0 % (0-10); EOSINOPHILS # (AUTO) 0.4 10^3/uL (0.0-0.3); EOSINOPHILS % (AUTO) 5 % (0-10); LYMPHOCYTES # (AUTO) 1.5 X 10^3 (1.0-4.0); LYMPHOCYTES % (AUTO) 21 % (12-44); MEAN CORPUSCULAR HEMOGLOBIN 30 PG (25-34); MEAN CORPUSCULAR HGB CONC 34 G/DL (32-36); MEAN CORPUSCULAR VOLUME 89 FL (80-99); MEAN PLATELET VOLUME 10.4 FL (7.4-10.4); MONOCYTES % (AUTO) 14 % (0-12); NEUTROPHILS # (AUTO) 4.1 X 10^3 (1.8-7.8); NEUTROPHILS % (AUTO) 59 % (42-75); PLATELET COUNT 151 10^3/uL (130-400); RED BLOOD COUNT 3.87 10^6/uL (4.35-5.85); WHITE BLOOD COUNT 7.1 10^3/uL (4.3-11.0)
[2016-03-25 05:38] LABS: ALANINE AMINOTRANSFERASE 16 U/L (0-55); ALBUMIN 2.8 G/DL (3.2-4.5); ANION GAP 8 MMOL/L (5-14); ASPARTATE AMINO TRANSFERASE 15 U/L (5-34); BILIRUBIN,TOTAL 0.6 MG/DL (0.1-1.0); BLOOD UREA NITROGEN 18 MG/DL (7-18); BUN/CREATININE RATIO 23; CALCIUM 8.2 MG/DL (8.5-10.1); CARBON DIOXIDE 27 MMOL/L (21-32); CHLORIDE 106 MMOL/L (98-107); GFR ESTIMATED > 60; GLUCOSE 150 MG/DL (70-105); MAGNESIUM 2.1 MG/DL (1.8-2.4); PHOSPHORUS 3.1 MG/DL (2.3-4.7); POTASSIUM 3.6 MMOL/L (3.6-5.0); SODIUM 141 MMOL/L (135-145); TOTAL PROTEIN 5.6 G/DL (6.4-8.2)
[2016-03-25] MEDS: LACTATED RINGERS 1,000 ML IV SCH ×3 (05:42→21:28)
[2016-03-25] MEDS: inSUlin (REGULAR) HUMAN 1 UNIT/0.01 ML (CHARGE PER UNIT) SC SCH ×5 (06:50→23:54)
[2016-03-25 08:00] VITALS: BP 166/89
[2016-03-25] MEDS: PANTOPRAZOLE 40 MG/10 ML (PROTONIX) VIAL IVP SCH (08:52)
[2016-03-25] MEDS: fentaNYL INJECTION 100 MCG/2 ML AMP IVP PRN ×5 (08:52→23:56)
[2016-03-25] MEDS: POTASSIUM CL 10MEQ/50ML IVPB 50 ML IV SCH ×4 (11:15→16:37)
[2016-03-25 12:00] VITALS: BP 159/91
--- NOTE | 2016-03-25 13:38 | Progress Note-Standard ---
Standard Progress Note Progress Notes/Assess & Plan Progress/Assessment & Plan 03/22/16"uneventful postoperative night. Pain control reasonable. 4 motivation with incentive spirometry encouraged. Vital signs stable. Will continue ICU care for 24 hours. Byers catheter to stay for 2 weeks due to colovesical fistula. Cystogram will be obtained at the end of 2 weeks before catheter is removed. will be transferred the floor tomorrow 03/23/16:nnausea and vomiting early this morning. No abdominal distention. Vital signs stable. Incisions dry. TPN today, postoperative ileus anticipated. Continue Reglan and transferred to the floor 03/24/16:recurrent vomiting of large volumes of bilious fluid. Postoperative ileus versus early small bowel obstruction. Nasogastric tube placed returning bile stained contents. Erythema around the incision. We will use antibiotics in anticipation of wound infection. Continue TPN. Hypokalemia, being corrected. 03/25/16:postoperative ileus continues. Erythema around the incision contained. Has not passed flatus. We'll continue TPN. If unresolved, contrast study will be obtained Final Diagnosis colovesical fistula CLARKE SORIANO MD Mar 25, 2016 1:38 pm
[2016-03-25 16:00] VITALS: BP 141/96
[2016-03-25] MEDS: ENOXAPARIN 40 MG/0.4 ML (LOVENOX) SYR SC SCH (16:39)
[2016-03-25] MEDS ORDERED: [UNRECOGNIZED DRUG - OTHER] IV SCH ×12 (17:00)
[2016-03-25] MEDS ORDERED: SODIUM ACETATE IV SCH ×12 (17:00)
[2016-03-25] MEDS ORDERED: SODIUM CHLORIDE IV SCH ×12 (17:00)
[2016-03-25 19:43] VITALS: BP 137/85
[2016-03-26] VITALS: BP 151/92
[2016-03-26] MEDS: PIPERACILLIN SODIUM/TAZOBACTAM 4.5 GM in NS (IVPB) 100 ML IV SCH ×3 (03:42→19:25)
[2016-03-26 04:00] VITALS: BP 176/89
[2016-03-26] MEDS: fentaNYL INJECTION 100 MCG/2 ML AMP IVP PRN ×6 (04:57→23:20)
[2016-03-26] MEDS: METOCLOPRAMIDE INJ 10 MG/2 ML (REGLAN) IVP SCH ×4 (04:59→23:20)
[2016-03-26 05:33] LABS: BASOPHILS # (AUTO) 0.1 10^3/uL (0.0-0.1); BASOPHILS % (AUTO) 1 % (0-10); EOSINOPHILS # (AUTO) 0.3 10^3/uL (0.0-0.3); EOSINOPHILS % (AUTO) 3 % (0-10); LYMPHOCYTES # (AUTO) 1.6 X 10^3 (1.0-4.0); LYMPHOCYTES % (AUTO) 15 % (12-44); MEAN CORPUSCULAR HEMOGLOBIN 30 PG (25-34); MEAN CORPUSCULAR HGB CONC 34 G/DL (32-36); MEAN CORPUSCULAR VOLUME 88 FL (80-99); MEAN PLATELET VOLUME 10.4 FL (7.4-10.4); MONOCYTES # (AUTO) 1.3 X 10^3 (0.0-1.0); MONOCYTES % (AUTO) 12 % (0-12); NEUTROPHILS # (AUTO) 7.7 X 10^3 (1.8-7.8); NEUTROPHILS % (AUTO) 70 % (42-75); PLATELET COUNT 183 10^3/uL (130-400); RED CELL DISTRIBUTION WIDTH 12.9 % (10.0-14.5); WHITE BLOOD COUNT 11.1 10^3/uL (4.3-11.0)
[2016-03-26 06:05] LABS: ALANINE AMINOTRANSFERASE 25 U/L (0-55); ALBUMIN 3.1 G/DL (3.2-4.5); ANION GAP 12 MMOL/L (5-14); ASPARTATE AMINO TRANSFERASE 25 U/L (5-34); BILIRUBIN,TOTAL 1.3 MG/DL (0.1-1.0); BLOOD UREA NITROGEN 18 MG/DL (7-18); BUN/CREATININE RATIO 22; CALCIUM 8.4 MG/DL (8.5-10.1); CARBON DIOXIDE 24 MMOL/L (21-32); CHLORIDE 105 MMOL/L (98-107); CREATININE SERUM 0.81 MG/DL (0.60-1.30); GFR ESTIMATED > 60; GLUCOSE 171 MG/DL (70-105); MAGNESIUM 1.9 MG/DL (1.8-2.4); PHOSPHORUS 3.2 MG/DL (2.3-4.7); POTASSIUM 3.7 MMOL/L (3.6-5.0); SODIUM 141 MMOL/L (135-145); TOTAL PROTEIN 6.2 G/DL (6.4-8.2); TRIGLYCERIDES 274 MG/DL (<150)
[2016-03-26] MEDS: inSUlin (REGULAR) HUMAN 1 UNIT/0.01 ML (CHARGE PER UNIT) SC SCH ×3 (06:16→18:04)
[2016-03-26] MEDS: PANTOPRAZOLE 40 MG/10 ML (PROTONIX) VIAL IVP SCH (08:14)
[2016-03-26] MEDS ORDERED: VANCOMYCIN INJECTION 2,000 MG in NS IV 500 ML 500 ML IV NR (08:30)
[2016-03-26] MEDS ORDERED: VANCOMYCIN INJECTION 1,500 MG in NS IV 500 ML 500 ML IV NR (08:30)
[2016-03-26] MEDS: POTASSIUM CL 10MEQ/50ML IVPB 50 ML IV SCH ×4 (10:45→17:46)
--- NOTE | 2016-03-26 10:46 | Progress Note-Standard ---
Standard Progress Note Progress Notes/Assess & Plan Progress/Assessment & Plan 03/22/16"uneventful postoperative night. Pain control reasonable. 4 motivation with incentive spirometry encouraged. Vital signs stable. Will continue ICU care for 24 hours. Byers catheter to stay for 2 weeks due to colovesical fistula. Cystogram will be obtained at the end of 2 weeks before catheter is removed. will be transferred the floor tomorrow 03/23/16:nnausea and vomiting early this morning. No abdominal distention. Vital signs stable. Incisions dry. TPN today, postoperative ileus anticipated. Continue Reglan and transferred to the floor 03/24/16:recurrent vomiting of large volumes of bilious fluid. Postoperative ileus versus early small bowel obstruction. Nasogastric tube placed returning bile stained contents. Erythema around the incision. We will use antibiotics in anticipation of wound infection. Continue TPN. Hypokalemia, being corrected. 03/25/16:postoperative ileus continues. Erythema around the incision contained. Has not passed flatus. We'll continue TPN. If unresolved, contrast study will be obtained 03/26/16:patient reports passing flatus having bowel movements. NG tube extruded spontaneously last night. No abdominal distention. Erythema around the incision increased. Vancomycin added. May require opening of the incision in 24-40 hours. We'll start clear liquids Final Diagnosis colovesical fistula. Postoperative ileus, improving. Cellulitis of the wound CLARKE SORIANO MD Mar 26, 2016 10:46
[2016-03-26 12:00] VITALS: BP 159/84
[2016-03-26 16:09] VITALS: BP 154/87
[2016-03-26] MEDS: ENOXAPARIN 40 MG/0.4 ML (LOVENOX) SYR SC SCH (17:49)
[2016-03-26] MEDS: [UNRECOGNIZED DRUG - OTHER] IV SCH ×12 (17:54)
[2016-03-26] MEDS: SODIUM CHLORIDE IV SCH ×12 (17:54)
[2016-03-26] MEDS: SODIUM ACETATE IV SCH ×12 (17:54)
[2016-03-26 19:15] VITALS: BP 159/93
[2016-03-26] MEDS: LACTATED RINGERS 1,000 ML IV SCH (20:09)
[2016-03-26] MEDS: VANCOMYCIN 1250 MG/NS 250 ML IVPB IV SCH ×2 (20:19)
[2016-03-26] MEDS ORDERED: ACETAMINOPHEN 325 MG TABLET/CAPLET (TYLENOL) PO PRN (21:00)
[2016-03-27] VITALS (10 sets, daily range): BP systolic 138–194; BP diastolic 83–107
[2016-03-27] MEDS: inSUlin (REGULAR) HUMAN 1 UNIT/0.01 ML (CHARGE PER UNIT) SC SCH ×5 (00:31→23:53)
[2016-03-27] MEDS: PIPERACILLIN SODIUM/TAZOBACTAM 4.5 GM in NS (IVPB) 100 ML IV SCH ×3 (04:01→19:59)
[2016-03-27] MEDS: CATHETER FLUSH 10 ML SYR IV PRN (04:50)
[2016-03-27] MEDS: fentaNYL INJECTION 100 MCG/2 ML AMP IVP PRN ×4 (04:50→16:51)
[2016-03-27] MEDS: METOCLOPRAMIDE INJ 10 MG/2 ML (REGLAN) IVP SCH ×4 (05:14→23:52)
[2016-03-27 05:45] LABS: BASOPHILS # (AUTO) 0.1 10^3/uL (0.0-0.1); BASOPHILS % (AUTO) 1 % (0-10); EOSINOPHILS # (AUTO) 0.4 10^3/uL (0.0-0.3); EOSINOPHILS % (AUTO) 3 % (0-10); LYMPHOCYTES # (AUTO) 1.7 X 10^3 (1.0-4.0); LYMPHOCYTES % (AUTO) 12 % (12-44); MEAN CORPUSCULAR HEMOGLOBIN 30 PG (25-34); MEAN CORPUSCULAR HGB CONC 34 G/DL (32-36); MEAN CORPUSCULAR VOLUME 88 FL (80-99); MONOCYTES # (AUTO) 1.7 X 10^3 (0.0-1.0); MONOCYTES % (AUTO) 12 % (0-12); NEUTROPHILS # (AUTO) 10.4 X 10^3 (1.8-7.8); NEUTROPHILS % (AUTO) 73 % (42-75); PLATELET COUNT 193 10^3/uL (130-400); RED BLOOD COUNT 4.11 10^6/uL (4.35-5.85); RED CELL DISTRIBUTION WIDTH 13.2 % (10.0-14.5); WHITE BLOOD COUNT 14.4 10^3/uL (4.3-11.0)
[2016-03-27 06:08] LABS: ANION GAP 10 MMOL/L (5-14); BLOOD UREA NITROGEN 18 MG/DL (7-18); BUN/CREATININE RATIO 21; CALCIUM 8.5 MG/DL (8.5-10.1); CARBON DIOXIDE 24 MMOL/L (21-32); CHLORIDE 106 MMOL/L (98-107); CREATININE SERUM 0.84 MG/DL (0.60-1.30); GFR ESTIMATED > 60; GLUCOSE 169 MG/DL (70-105); PHOSPHORUS 3.5 MG/DL (2.3-4.7); POTASSIUM 4.2 MMOL/L (3.6-5.0); SODIUM 140 MMOL/L (135-145)
[2016-03-27 07:09] LABS: BAND NEUTROPHILS 1 %; BASOPHILS % (MANUAL) 0 %; EOSINOPHILS % (MANUAL) 4 %; LYMPHOCYTES % (MANUAL) 9 %; NEUTROPHILS % (MANUAL) 74 %
[2016-03-27] MEDS: PANTOPRAZOLE 40 MG/10 ML (PROTONIX) VIAL IVP SCH (08:28)
[2016-03-27] MEDS: VANCOMYCIN 1250 MG/NS 250 ML IVPB IV SCH ×4 (08:28→21:15)
[2016-03-27] MEDS ORDERED: LIDOCAINE 1% INJ 20 ML (XYLOCAINE) VIAL INJ ONE (09:00)
--- NOTE | 2016-03-27 10:20 | Progress Note-Standard ---
Standard Progress Note Progress Notes/Assess & Plan Progress/Assessment & Plan 03/22/16"uneventful postoperative night. Pain control reasonable. 4 motivation with incentive spirometry encouraged. Vital signs stable. Will continue ICU care for 24 hours. Byers catheter to stay for 2 weeks due to colovesical fistula. Cystogram will be obtained at the end of 2 weeks before catheter is removed. will be transferred the floor tomorrow 03/23/16:nnausea and vomiting early this morning. No abdominal distention. Vital signs stable. Incisions dry. TPN today, postoperative ileus anticipated. Continue Reglan and transferred to the floor 03/24/16:recurrent vomiting of large volumes of bilious fluid. Postoperative ileus versus early small bowel obstruction. Nasogastric tube placed returning bile stained contents. Erythema around the incision. We will use antibiotics in anticipation of wound infection. Continue TPN. Hypokalemia, being corrected. 03/25/16:postoperative ileus continues. Erythema around the incision contained. Has not passed flatus. We'll continue TPN. If unresolved, contrast study will be obtained 03/26/16:patient reports passing flatus having bowel movements. NG tube extruded spontaneously last night. No abdominal distention. Erythema around the incision increased. Vancomycin added. May require opening of the incision in 24-40 hours. We'll start clear liquids 03/27/16: Subcutaneous fluid collection drained under local anesthetic at the bedside. Wound VAC requested. Having bowel movements. Continue IV antibiotics Final Diagnosis Colovesical fistula. Postoperative cellulitis of the wound CLARKE SORIANO MD Mar 27, 2016 10:20
[2016-03-27] MEDS ORDERED: LABETALOL HCL 20 MG/4 ML VIAL IV NR (14:15)
--- NOTE | 2016-03-27 15:27 | Diagnostic Imaging Report ---
EXAMINATION: Portable upright radiograph of the chest. INDICATION: ICA management. FINDINGS: There is bibasilar infiltrate or atelectasis, more prominent on the left side. Minimal vascular congestion is suggested. There is question of a tiny left effusion. The heart size is at the upper limits of normal. No effusion or pneumothorax. The mediastinum and olu appear unremarkable. IMPRESSION: Mild bibasilar infiltrate or atelectasis, more on the left side. Minimal vascular congestion. Dictated by: Dictated on workstation # [id number]
[2016-03-27] MEDS: ENOXAPARIN 40 MG/0.4 ML (LOVENOX) SYR SC SCH (16:51)
[2016-03-27] MEDS: [UNRECOGNIZED DRUG - OTHER] IV SCH ×12 (16:54)
[2016-03-27] MEDS: SODIUM ACETATE IV SCH ×12 (16:54)
[2016-03-27] MEDS: SODIUM CHLORIDE IV SCH ×12 (16:54)
[2016-03-27] MEDS: ONDANSETRON 4 MG/2 ML (SDV) Z0FRAN IVP PRN (18:48)
[2016-03-27] MEDS ORDERED: TROUGH ORDER-PHARMACY XX NR (19:30)
[2016-03-28] VITALS (7 sets, daily range): BP systolic 122–161; BP diastolic 76–95
[2016-03-28] MEDS: PIPERACILLIN SODIUM/TAZOBACTAM 4.5 GM in NS (IVPB) 100 ML IV SCH ×3 (04:34→20:03)
[2016-03-28 05:36] LABS: BASOPHILS % (AUTO) 0 % (0-10); EOSINOPHILS # (AUTO) 0.5 10^3/uL (0.0-0.3); EOSINOPHILS % (AUTO) 4 % (0-10); LYMPHOCYTES # (AUTO) 1.8 X 10^3 (1.0-4.0); LYMPHOCYTES % (AUTO) 16 % (12-44); MEAN CORPUSCULAR HEMOGLOBIN 30 PG (25-34); MEAN CORPUSCULAR HGB CONC 34 G/DL (32-36); MEAN CORPUSCULAR VOLUME 89 FL (80-99); MEAN PLATELET VOLUME 10.8 FL (7.4-10.4); MONOCYTES # (AUTO) 1.5 X 10^3 (0.0-1.0); MONOCYTES % (AUTO) 14 % (0-12); NEUTROPHILS # (AUTO) 7.3 X 10^3 (1.8-7.8); NEUTROPHILS % (AUTO) 66 % (42-75); PLATELET COUNT 193 10^3/uL (130-400); RED BLOOD COUNT 3.84 10^6/uL (4.35-5.85); RED CELL DISTRIBUTION WIDTH 13.1 % (10.0-14.5); WHITE BLOOD COUNT 11.1 10^3/uL (4.3-11.0)
[2016-03-28 06:01] LABS: ANION GAP 9 MMOL/L (5-14); BLOOD UREA NITROGEN 18 MG/DL (7-18); BUN/CREATININE RATIO 17; CALCIUM 8.2 MG/DL (8.5-10.1); CARBON DIOXIDE 24 MMOL/L (21-32); CHLORIDE 107 MMOL/L (98-107); CREATININE SERUM 1.04 MG/DL (0.60-1.30); GFR ESTIMATED > 60; GLUCOSE 151 MG/DL (70-105); MAGNESIUM 2.1 MG/DL (1.8-2.4); PHOSPHORUS 3.5 MG/DL (2.3-4.7); POTASSIUM 4.3 MMOL/L (3.6-5.0); SODIUM 140 MMOL/L (135-145)
[2016-03-28] MEDS: inSUlin (REGULAR) HUMAN 1 UNIT/0.01 ML (CHARGE PER UNIT) SC SCH ×4 (06:24→23:48)
[2016-03-28] MEDS: METOCLOPRAMIDE INJ 10 MG/2 ML (REGLAN) IVP SCH ×4 (06:24→23:48)
[2016-03-28] MEDS: VANCOMYCIN 1250 MG/NS 250 ML IVPB IV SCH ×4 (07:55→20:03)
[2016-03-28] MEDS: PANTOPRAZOLE 40 MG/10 ML (PROTONIX) VIAL IVP SCH (07:55)
[2016-03-28] MEDS: fentaNYL INJECTION 100 MCG/2 ML AMP IVP PRN ×2 (08:15→13:15)
[2016-03-28] MEDS: ATENOLOL 50 MG (TENORMIN) TAB PO SCH (08:17)
[2016-03-28] MEDS: CATHETER FLUSH 10 ML SYR IV PRN (13:04)
--- NOTE | 2016-03-28 14:59 | Progress Note-Standard ---
Standard Progress Note Progress Notes/Assess & Plan Progress/Assessment & Plan 03/22/16"uneventful postoperative night. Pain control reasonable. 4 motivation with incentive spirometry encouraged. Vital signs stable. Will continue ICU care for 24 hours. Byers catheter to stay for 2 weeks due to colovesical fistula. Cystogram will be obtained at the end of 2 weeks before catheter is removed. will be transferred the floor tomorrow 03/23/16:nnausea and vomiting early this morning. No abdominal distention. Vital signs stable. Incisions dry. TPN today, postoperative ileus anticipated. Continue Reglan and transferred to the floor 03/24/16:recurrent vomiting of large volumes of bilious fluid. Postoperative ileus versus early small bowel obstruction. Nasogastric tube placed returning bile stained contents. Erythema around the incision. We will use antibiotics in anticipation of wound infection. Continue TPN. Hypokalemia, being corrected. 03/25/16:postoperative ileus continues. Erythema around the incision contained. Has not passed flatus. We'll continue TPN. If unresolved, contrast study will be obtained 03/26/16:patient reports passing flatus having bowel movements. NG tube extruded spontaneously last night. No abdominal distention. Erythema around the incision increased. Vancomycin added. May require opening of the incision in 24-40 hours. We'll start clear liquids 03/27/16: Subcutaneous fluid collection drained under local anesthetic at the bedside. Wound VAC requested. Having bowel movements. Continue IV antibiotics 03/28/16:1 episode of vomiting last night, small bowel contrast study in progress dilated small bowel loops observed on the earlier studies. Patient reports passing stools will continue TPN and observe Final Diagnosis colovesical fistula. Postoperative ileus CLARKE SORIANO MD Mar 28, 2016 14:59
--- NOTE | 2016-03-28 17:03 | Diagnostic Imaging Report ---
EXAMINATION: Small bowel follow-through. TECHNIQUE: After oral ingestion of barium, multiple radiographs of the abdomen were performed at 15 and 30 minutes, then hourly as needed. INDICATION: Nausea and vomiting after surgery. FINDINGS: A education site manager view of the abdomen demonstrates surgical clips in the mid and lower left side of the abdomen. There are moderately dilated small bowel loops. There is moderate gaseous distention of the stomach and small bowel loops with contrast passing through the entire small bowel in 5 hours with some contrast seen in the rectum. No significant fold thickening is seen in the bowel loops. IMPRESSION: Mild to moderate dilatation of the stomach and small bowel loops without evidence of mechanical obstruction, suggestive of a post operative ileus. Dictated by: Dictated on workstation # [id number]
[2016-03-28] MEDS: ENOXAPARIN 40 MG/0.4 ML (LOVENOX) SYR SC SCH (17:21)
[2016-03-28] MEDS ORDERED: DIATRIZOATE MEGLUM/SODIUM 37% 120 ML (GASTROGRAFIN) NG ONE (17:30)
[2016-03-28] MEDS: SODIUM CHLORIDE IV SCH ×12 (17:35)
[2016-03-28] MEDS: [UNRECOGNIZED DRUG - OTHER] IV SCH ×12 (17:35)
[2016-03-28] MEDS: SODIUM ACETATE IV SCH ×12 (17:35)
[2016-03-29 04:20] VITALS: BP 162/99
[2016-03-29] MEDS: PIPERACILLIN SODIUM/TAZOBACTAM 4.5 GM in NS (IVPB) 100 ML IV SCH ×3 (04:24→19:38)
[2016-03-29 05:38] LABS: BASOPHILS # (AUTO) 0.1 10^3/uL (0.0-0.1); BASOPHILS % (AUTO) 1 % (0-10); EOSINOPHILS # (AUTO) 0.7 10^3/uL (0.0-0.3); EOSINOPHILS % (AUTO) 6 % (0-10); LYMPHOCYTES # (AUTO) 2.2 X 10^3 (1.0-4.0); LYMPHOCYTES % (AUTO) 19 % (12-44); MEAN CORPUSCULAR HEMOGLOBIN 29 PG (25-34); MEAN CORPUSCULAR HGB CONC 33 G/DL (32-36); MEAN CORPUSCULAR VOLUME 89 FL (80-99); MEAN PLATELET VOLUME 10.6 FL (7.4-10.4); MONOCYTES # (AUTO) 1.4 X 10^3 (0.0-1.0); MONOCYTES % (AUTO) 12 % (0-12); NEUTROPHILS # (AUTO) 7.4 X 10^3 (1.8-7.8); NEUTROPHILS % (AUTO) 63 % (42-75); PLATELET COUNT 221 10^3/uL (130-400); RED BLOOD COUNT 3.88 10^6/uL (4.35-5.85); WHITE BLOOD COUNT 11.8 10^3/uL (4.3-11.0)
[2016-03-29 05:54] LABS: ANION GAP 9 MMOL/L (5-14); BLOOD UREA NITROGEN 19 MG/DL (7-18); BUN/CREATININE RATIO 18; CALCIUM 8.2 MG/DL (8.5-10.1); CARBON DIOXIDE 23 MMOL/L (21-32); CHLORIDE 109 MMOL/L (98-107); CREATININE SERUM 1.06 MG/DL (0.60-1.30); GFR ESTIMATED > 60; GLUCOSE 111 MG/DL (70-105); PHOSPHORUS 3.5 MG/DL (2.3-4.7); SODIUM 141 MMOL/L (135-145)
[2016-03-29] MEDS: inSUlin (REGULAR) HUMAN 1 UNIT/0.01 ML (CHARGE PER UNIT) SC SCH ×3 (05:58→17:20)
[2016-03-29] MEDS: METOCLOPRAMIDE INJ 10 MG/2 ML (REGLAN) IVP SCH ×3 (06:09→17:19)
[2016-03-29] MEDS: fentaNYL INJECTION 100 MCG/2 ML AMP IVP PRN (06:12)
[2016-03-29 08:15] VITALS: BP 93/74
[2016-03-29] MEDS: PANTOPRAZOLE 40 MG/10 ML (PROTONIX) VIAL IVP SCH (08:35)
[2016-03-29] MEDS: VANCOMYCIN 1250 MG/NS 250 ML IVPB IV SCH ×4 (08:35→20:58)
[2016-03-29] MEDS: CATHETER FLUSH 10 ML SYR IV PRN (08:35)
[2016-03-29 10:05] VITALS: BP 148/78
[2016-03-29 11:30] VITALS: BP 154/85
--- NOTE | 2016-03-29 11:48 | Progress Note-Standard ---
Standard Progress Note Progress Notes/Assess & Plan Progress/Assessment & Plan 03/22/16"uneventful postoperative night. Pain control reasonable. 4 motivation with incentive spirometry encouraged. Vital signs stable. Will continue ICU care for 24 hours. Byers catheter to stay for 2 weeks due to colovesical fistula. Cystogram will be obtained at the end of 2 weeks before catheter is removed. will be transferred the floor tomorrow 03/23/16:nnausea and vomiting early this morning. No abdominal distention. Vital signs stable. Incisions dry. TPN today, postoperative ileus anticipated. Continue Reglan and transferred to the floor 03/24/16:recurrent vomiting of large volumes of bilious fluid. Postoperative ileus versus early small bowel obstruction. Nasogastric tube placed returning bile stained contents. Erythema around the incision. We will use antibiotics in anticipation of wound infection. Continue TPN. Hypokalemia, being corrected. 03/25/16:postoperative ileus continues. Erythema around the incision contained. Has not passed flatus. We'll continue TPN. If unresolved, contrast study will be obtained 03/26/16:patient reports passing flatus having bowel movements. NG tube extruded spontaneously last night. No abdominal distention. Erythema around the incision increased. Vancomycin added. May require opening of the incision in 24-40 hours. We'll start clear liquids 03/27/16: Subcutaneous fluid collection drained under local anesthetic at the bedside. Wound VAC requested. Having bowel movements. Continue IV antibiotics 03/28/16:1 episode of vomiting last night, small bowel contrast study in progress dilated small bowel loops observed on the earlier studies. Patient reports passing stools will continue TPN and observe 03/29/16: Small bowel contrast study negative for mechanical obstruction. Drainage from the wound better. Afebrile. We will initiate clear liquids and observe. TPN will be continued for now Final Diagnosis [place] vesical fistula CLARKE SORIANO MD Mar 29, 2016 11:47
[2016-03-29] MEDS: ATENOLOL 50 MG (TENORMIN) TAB PO SCH (12:12)
[2016-03-29 16:00] VITALS: BP 175/89
[2016-03-29] MEDS: ENOXAPARIN 40 MG/0.4 ML (LOVENOX) SYR SC SCH (16:14)
[2016-03-29] MEDS: [UNRECOGNIZED DRUG - OTHER] IV SCH ×12 (17:18)
[2016-03-29] MEDS: SODIUM CHLORIDE IV SCH ×12 (17:18)
[2016-03-29] MEDS: SODIUM ACETATE IV SCH ×12 (17:18)
[2016-03-29] MEDS ORDERED: TROUGH ORDER-PHARMACY XX NR (19:30)
[2016-03-29 20:00] VITALS: BP 157/77
[2016-03-30] VITALS: BP 151/83
[2016-03-30] MEDS: inSUlin (REGULAR) HUMAN 1 UNIT/0.01 ML (CHARGE PER UNIT) SC SCH ×4 (01:14→22:45)
[2016-03-30] MEDS: METOCLOPRAMIDE INJ 10 MG/2 ML (REGLAN) IVP SCH ×4 (01:14→17:41)
[2016-03-30] MEDS: PIPERACILLIN SODIUM/TAZOBACTAM 4.5 GM in NS (IVPB) 100 ML IV SCH ×3 (04:12→20:26)
[2016-03-30 05:39] LABS: BASOPHILS # (AUTO) 0.1 10^3/uL (0.0-0.1); BASOPHILS % (AUTO) 1 % (0-10); EOSINOPHILS # (AUTO) 0.7 10^3/uL (0.0-0.3); EOSINOPHILS % (AUTO) 5 % (0-10); LYMPHOCYTES # (AUTO) 2.4 X 10^3 (1.0-4.0); LYMPHOCYTES % (AUTO) 19 % (12-44); MEAN CORPUSCULAR HEMOGLOBIN 30 PG (25-34); MEAN CORPUSCULAR HGB CONC 33 G/DL (32-36); MEAN CORPUSCULAR VOLUME 88 FL (80-99); MEAN PLATELET VOLUME 10.8 FL (7.4-10.4); MONOCYTES # (AUTO) 1.3 X 10^3 (0.0-1.0); MONOCYTES % (AUTO) 11 % (0-12); NEUTROPHILS # (AUTO) 8.2 X 10^3 (1.8-7.8); NEUTROPHILS % (AUTO) 65 % (42-75); PLATELET COUNT 234 10^3/uL (130-400); RED CELL DISTRIBUTION WIDTH 12.9 % (10.0-14.5); WHITE BLOOD COUNT 12.6 10^3/uL (4.3-11.0)
[2016-03-30 05:55] LABS: INR 1.2 (0.8-1.4); PROTHROMBIN TIME PATIENT 14.8 SEC (12.2-14.7)
[2016-03-30 06:06] LABS: ALANINE AMINOTRANSFERASE 33 U/L (0-55); ALBUMIN 2.9 G/DL (3.2-4.5); ANION GAP 9 MMOL/L (5-14); ASPARTATE AMINO TRANSFERASE 19 U/L (5-34); BILIRUBIN,TOTAL 0.5 MG/DL (0.1-1.0); BLOOD UREA NITROGEN 16 MG/DL (7-18); BUN/CREATININE RATIO 14; CARBON DIOXIDE 22 MMOL/L (21-32); CHLORIDE 108 MMOL/L (98-107); CREATININE SERUM 1.12 MG/DL (0.60-1.30); GFR ESTIMATED > 60; GLUCOSE 120 MG/DL (70-105); MAGNESIUM 1.9 MG/DL (1.8-2.4); PHOSPHORUS 3.4 MG/DL (2.3-4.7); POTASSIUM 3.9 MMOL/L (3.6-5.0); SODIUM 139 MMOL/L (135-145); TOTAL PROTEIN 5.9 G/DL (6.4-8.2); TRIGLYCERIDES 170 MG/DL (<150)
[2016-03-30 08:00] VITALS: BP 149/92
[2016-03-30] MEDS: ATENOLOL 50 MG (TENORMIN) TAB PO SCH (08:13)
[2016-03-30] MEDS: VANCOMYCIN 1250 MG/NS 250 ML IVPB IV SCH ×4 (08:13→20:29)
[2016-03-30] MEDS: PANTOPRAZOLE 40 MG/10 ML (PROTONIX) VIAL IVP SCH (08:13)
[2016-03-30] MEDS: fentaNYL INJECTION 100 MCG/2 ML AMP IVP PRN ×2 (08:18→13:08)
--- NOTE | 2016-03-30 09:46 | Progress Note-Standard ---
Standard Progress Note Progress Notes/Assess & Plan Progress/Assessment & Plan 03/22/16"uneventful postoperative night. Pain control reasonable. 4 motivation with incentive spirometry encouraged. Vital signs stable. Will continue ICU care for 24 hours. Byers catheter to stay for 2 weeks due to colovesical fistula. Cystogram will be obtained at the end of 2 weeks before catheter is removed. will be transferred the floor tomorrow 03/23/16:nnausea and vomiting early this morning. No abdominal distention. Vital signs stable. Incisions dry. TPN today, postoperative ileus anticipated. Continue Reglan and transferred to the floor 03/24/16:recurrent vomiting of large volumes of bilious fluid. Postoperative ileus versus early small bowel obstruction. Nasogastric tube placed returning bile stained contents. Erythema around the incision. We will use antibiotics in anticipation of wound infection. Continue TPN. Hypokalemia, being corrected. 03/25/16:postoperative ileus continues. Erythema around the incision contained. Has not passed flatus. We'll continue TPN. If unresolved, contrast study will be obtained 03/26/16:patient reports passing flatus having bowel movements. NG tube extruded spontaneously last night. No abdominal distention. Erythema around the incision increased. Vancomycin added. May require opening of the incision in 24-40 hours. We'll start clear liquids 03/27/16: Subcutaneous fluid collection drained under local anesthetic at the bedside. Wound VAC requested. Having bowel movements. Continue IV antibiotics 03/28/16:1 episode of vomiting last night, small bowel contrast study in progress dilated small bowel loops observed on the earlier studies. Patient reports passing stools will continue TPN and observe 03/29/16: Small bowel contrast study negative for mechanical obstruction. Drainage from the wound better. Afebrile. We will initiate clear liquids and observe. TPN will be continued for now 03/30/16:improving. Having liquid stools. No abdominal distention. Minimal drainage from the wound. Cystogram on Saturday and possibly discharge in 1-2 days thereafter Final Diagnosis colovesical fistula CLARKE SORIANO MD Mar 30, 2016 9:45 am
[2016-03-30 16:00] VITALS: BP 134/82
[2016-03-30] MEDS: [UNRECOGNIZED DRUG - OTHER] IV SCH ×12 (17:38)
[2016-03-30] MEDS: SODIUM ACETATE IV SCH ×12 (17:38)
[2016-03-30] MEDS: SODIUM CHLORIDE IV SCH ×12 (17:38)
[2016-03-30] MEDS: ENOXAPARIN 40 MG/0.4 ML (LOVENOX) SYR SC SCH (17:40)
[2016-03-31] VITALS: BP 160/88
[2016-03-31] MEDS: fentaNYL INJECTION 100 MCG/2 ML AMP IVP PRN (01:01)
[2016-03-31] MEDS: PIPERACILLIN SODIUM/TAZOBACTAM 4.5 GM in NS (IVPB) 100 ML IV SCH ×3 (04:36→20:41)
[2016-03-31 04:44] LABS: BASOPHILS # (AUTO) 0.1 10^3/uL (0.0-0.1); BASOPHILS % (AUTO) 1 % (0-10); EOSINOPHILS # (AUTO) 0.6 10^3/uL (0.0-0.3); EOSINOPHILS % (AUTO) 4 % (0-10); LYMPHOCYTES # (AUTO) 2.7 X 10^3 (1.0-4.0); LYMPHOCYTES % (AUTO) 19 % (12-44); MEAN CORPUSCULAR HEMOGLOBIN 30 PG (25-34); MEAN CORPUSCULAR HGB CONC 34 G/DL (32-36); MEAN CORPUSCULAR VOLUME 88 FL (80-99); MEAN PLATELET VOLUME 10.7 FL (7.4-10.4); MONOCYTES # (AUTO) 1.5 X 10^3 (0.0-1.0); MONOCYTES % (AUTO) 10 % (0-12); NEUTROPHILS # (AUTO) 9.6 X 10^3 (1.8-7.8); NEUTROPHILS % (AUTO) 67 % (42-75); PLATELET COUNT 232 10^3/uL (130-400); RED CELL DISTRIBUTION WIDTH 12.8 % (10.0-14.5); WHITE BLOOD COUNT 14.3 10^3/uL (4.3-11.0)
[2016-03-31 05:03] LABS: CALCIUM 8.1 MG/DL (8.5-10.1); CREATININE SERUM 1.35 MG/DL (0.60-1.30); MAGNESIUM 2.2 MG/DL (1.8-2.4); PHOSPHORUS 3.7 MG/DL (2.3-4.7); POTASSIUM 4.3 MMOL/L (3.6-5.0)
[2016-03-31] MEDS: METOCLOPRAMIDE INJ 10 MG/2 ML (REGLAN) IVP SCH ×3 (06:36→12:02)
[2016-03-31 08:00] VITALS: BP 150/90
[2016-03-31] MEDS: ATENOLOL 50 MG (TENORMIN) TAB PO SCH (10:13)
[2016-03-31] MEDS: VANCOMYCIN 1250 MG/NS 250 ML IVPB IV SCH ×4 (10:13→20:41)
[2016-03-31] MEDS: PANTOPRAZOLE 40 MG/10 ML (PROTONIX) VIAL IVP SCH (10:13)
--- NOTE | 2016-03-31 10:41 | Progress Note ---
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 passing flatus and tolerating diet using incentive spirometer and ambulating had midline incision previously opened up partially and slight drainage less redness wbc slightly increased trimble in place on vanc/zosyn Objective Exam Vital Signs Date Time Temp Pulse Resp B/P Pulse Ox O2 Delivery O2 Flow Rate FiO2 03/31/16 08:00 98.0 74 20 150/90 95 Room Air 03/31/16 00:00 99.3 79 18 160/88 95 Room Air 03/30/16 16:00 98.8 69 20 134/82 97 Room Air I & O 03/31/16 07:00 Intake Total 5681.0 ml Output Total 3750 ml Balance 1931.0 ml Capillary Refill : General Appearance: No Apparent Distress HEENT: Normal ENT Inspection Neck: Supple Respiratory: No Accessory Muscle Use No Respiratory Distress Cardiovascular: Regular Rate, Rhythm Gastrointestinal: distended (slight erythmea around midline incision, no significant tenderness) Extremity: Non Tender Neurologic/Psychiatric: Alert Oriented x3 No Motor/Sensory Deficits Normal Mood/Affect Skin: Warm/Dry (slight erythema around midline minimal drainage) Results Lab Laboratory Tests 03/30/16 16:20: Glucometer 161H 03/30/16 22:45: Glucometer 136H 03/31/16 04:38: Anion Gap 8, BUN/Creatinine Ratio 14, Basophils # (Auto) 0.1, Basophils (%) ( Auto) 1, Blood Urea Nitrogen 19H, Calcium Level 8.1L, Carbon Dioxide Level 24, Chloride Level 105, Creatinine 1.35H, Eosinophils # (Auto) 0.6H, Eosinophils (% ) (Auto) 4, Estimat Glomerular Filtration Rate 54, Glucose Level 150H, Hematocrit 34L, Hemoglobin 11.6L, Lymphocytes # (Auto) 2.7, Lymphocytes (%) ( Auto) 19, Magnesium Level 2.2, Mean Corpuscular Hemoglobin 30, Mean Corpuscular Hemoglobin Concent 34, Mean Corpuscular Volume 88, Mean Platelet Volume 10.7H, Monocytes # (Auto) 1.5H, Monocytes (%) (Auto) 10, Neutrophils # (Auto) 9.6H, Neutrophils (%) (Auto) 67, Phosphorus Level 3.7, Platelet Count 232, Potassium Level 4.3, Red Blood Count 3.90L, Red Cell Distribution Width 12.8, Sodium Level 137, White Blood Count 14.3H Microbiology 03/21/16 Gram Stain - Final, Complete 03/21/16 Sputum Culture - Final, Complete Enterobacter Aerogenes Assessment/Plan Assessment/Plan Assessment/Plan s/p left colon resection and cholecystectomy for gallstone and colovesicular fistula continue tpn, vanc and zosyn trimble to continue cystogram to be saturday. wound care to midline incision Clinical Quality Measures DVT/VTE Risk/Contraindication: Risk Factor Score Per Nursin RFS Level Per Nursing on Admit: 4+=Very High MIL BRENNAN DO Mar 31, 2016 10:41 am
[2016-03-31] MEDS: inSUlin (REGULAR) HUMAN 1 UNIT/0.01 ML (CHARGE PER UNIT) SC SCH ×2 (12:02→20:41)
[2016-03-31 16:00] VITALS: BP 138/91
[2016-03-31] MEDS: ENOXAPARIN 40 MG/0.4 ML (LOVENOX) SYR SC SCH (16:07)
[2016-03-31] MEDS: [UNRECOGNIZED DRUG - OTHER] IV SCH ×12 (16:43)
[2016-03-31] MEDS: SODIUM ACETATE IV SCH ×12 (16:43)
[2016-03-31] MEDS: SODIUM CHLORIDE IV SCH ×12 (16:43)
[2016-04-01] VITALS: BP 157/96
[2016-04-01] MEDS: METOCLOPRAMIDE INJ 10 MG/2 ML (REGLAN) IVP SCH ×5 (00:26→18:30)
[2016-04-01] MEDS: PIPERACILLIN SODIUM/TAZOBACTAM 4.5 GM in NS (IVPB) 100 ML IV SCH ×3 (04:39→21:42)
[2016-04-01 05:33] LABS: BASOPHILS # (AUTO) 0.1 10^3/uL (0.0-0.1); BASOPHILS % (AUTO) 1 % (0-10); EOSINOPHILS # (AUTO) 0.5 10^3/uL (0.0-0.3); EOSINOPHILS % (AUTO) 4 % (0-10); LYMPHOCYTES # (AUTO) 2.6 X 10^3 (1.0-4.0); LYMPHOCYTES % (AUTO) 18 % (12-44); MEAN CORPUSCULAR HEMOGLOBIN 29 PG (25-34); MEAN CORPUSCULAR HGB CONC 33 G/DL (32-36); MEAN CORPUSCULAR VOLUME 88 FL (80-99); MEAN PLATELET VOLUME 10.9 FL (7.4-10.4); MONOCYTES # (AUTO) 1.3 X 10^3 (0.0-1.0); MONOCYTES % (AUTO) 9 % (0-12); NEUTROPHILS # (AUTO) 9.9 X 10^3 (1.8-7.8); NEUTROPHILS % (AUTO) 68 % (42-75); PLATELET COUNT 265 10^3/uL (130-400); RED BLOOD COUNT 4.08 10^6/uL (4.35-5.85); RED CELL DISTRIBUTION WIDTH 13.1 % (10.0-14.5); WHITE BLOOD COUNT 14.5 10^3/uL (4.3-11.0)
[2016-04-01 05:51] LABS: CALCIUM 8.3 MG/DL (8.5-10.1); CREATININE SERUM 1.23 MG/DL (0.60-1.30); MAGNESIUM 2.2 MG/DL (1.8-2.4); PHOSPHORUS 3.9 MG/DL (2.3-4.7); POTASSIUM 4.2 MMOL/L (3.6-5.0)
[2016-04-01] MEDS ORDERED: TROUGH ORDER-PHARMACY XX NR (07:30)
[2016-04-01 08:00] VITALS: BP 168/103
[2016-04-01] MEDS: fentaNYL INJECTION 100 MCG/2 ML AMP IVP PRN (08:51)
[2016-04-01] MEDS: PANTOPRAZOLE 40 MG/10 ML (PROTONIX) VIAL IVP SCH (08:51)
[2016-04-01] MEDS: VANCOMYCIN IV ADD-VANTAGE 1,000 MG in SODIUM CHLORIDE (ADD-VANTAGE) 250 ML IV SCH ×2 (08:57→20:30)
[2016-04-01] MEDS: ATENOLOL 50 MG (TENORMIN) TAB PO SCH (08:59)
--- NOTE | 2016-04-01 10:03 | Progress Note ---
Subjective Subjective/Events-last exam bowel movement overnight. feeling good. per nursing patient was having some discomfort in abdomen and flushed trimble and had good return of urine and discomfort went away. tolerating diet on tpn wbc 14.5 from 14.3 still with some midline draine Objective Exam Vital Signs Date Time Temp Pulse Resp B/P Pulse Ox O2 Delivery O2 Flow Rate FiO2 04/01/16 08:00 97.8 76 20 168/103 93 Room Air 04/01/16 00:00 100.0 71 20 157/96 96 Room Air 03/31/16 20:00 98 2.00 03/31/16 16:00 96.9 68 20 138/91 96 Room Air I & O 04/01/16 07:00 Intake Total 2400 ml Output Total 3750 ml Balance -1350 ml Capillary Refill : General Appearance: No Apparent Distress HEENT: Normal ENT Inspection Neck: Supple Respiratory: No Accessory Muscle Use No Respiratory Distress Cardiovascular: Regular Rate, Rhythm Gastrointestinal: distended (slight erythmea around midline incision with minimal drainage, no significant tenderness, less distention) Extremity: Non Tender Neurologic/Psychiatric: Alert Oriented x3 No Motor/Sensory Deficits Normal Mood/Affect Skin: Warm/Dry (slight erythema around midline minimal drainage) Results Lab Laboratory Tests 03/31/16 10:50: Glucometer 183H 03/31/16 20:24: Glucometer 184H 04/01/16 05:18: Anion Gap 11, BUN/Creatinine Ratio 18, Basophils # (Auto) 0.1, Basophils (%) ( Auto) 1, Blood Urea Nitrogen 22H, Calcium Level 8.3L, Carbon Dioxide Level 20L, Chloride Level 109H, Creatinine 1.23, Eosinophils # (Auto) 0.5H, Eosinophils (% ) (Auto) 4, Estimat Glomerular Filtration Rate 60, Glucose Level 177H, Hematocrit 36L, Hemoglobin 11.9L, Lymphocytes # (Auto) 2.6, Lymphocytes (%) ( Auto) 18, Magnesium Level 2.2, Mean Corpuscular Hemoglobin 29, Mean Corpuscular Hemoglobin Concent 33, Mean Corpuscular Volume 88, Mean Platelet Volume 10.9H, Monocytes # (Auto) 1.3H, Monocytes (%) (Auto) 9, Neutrophils # (Auto) 9.9H, Neutrophils (%) (Auto) 68, Phosphorus Level 3.9, Platelet Count 265, Potassium Level 4.2, Red Blood Count 4.08L, Red Cell Distribution Width 13.1, Sodium Level 140, White Blood Count 14.5H 04/01/16 07:25: Vancomycin Level Trough 19.7 Microbiology 03/21/16 Gram Stain - Final, Complete 03/21/16 Sputum Culture - Final, Complete Enterobacter Aerogenes Assessment/Plan Assessment/Plan Assessment/Plan s/p left colon resection and cholecystectomy for gallstone and colovesicular fistula continue tpn, vanc and zosyn trimble to continue cystogram to be saturday. wound care to midline incision culture if drainage urine output improved after trimble flushed per nursing Clinical Quality Measures DVT/VTE Risk/Contraindication: Risk Factor Score Per Nursin RFS Level Per Nursing on Admit: 4+=Very High MIL BRENNAN DO Apr 01, 2016 10:03 am
[2016-04-01] MEDS: inSUlin (REGULAR) HUMAN 1 UNIT/0.01 ML (CHARGE PER UNIT) SC SCH ×2 (11:19→21:51)
[2016-04-01 16:55] VITALS: BP 172/85
[2016-04-01] MEDS: ENOXAPARIN 40 MG/0.4 ML (LOVENOX) SYR SC SCH (18:31)
[2016-04-01] MEDS: SODIUM CHLORIDE IV SCH ×12 (18:34)
[2016-04-01] MEDS: SODIUM ACETATE IV SCH ×12 (18:34)
[2016-04-01] MEDS: [UNRECOGNIZED DRUG - OTHER] IV SCH ×12 (18:34)
[2016-04-02] MEDS: METOCLOPRAMIDE INJ 10 MG/2 ML (REGLAN) IVP SCH ×5 (00:39→23:52)
[2016-04-02 01:20] VITALS: BP 148/82
[2016-04-02] MEDS: PIPERACILLIN SODIUM/TAZOBACTAM 4.5 GM in NS (IVPB) 100 ML IV SCH (04:55)
[2016-04-02 05:05] VITALS: BP 136/88
[2016-04-02 05:28] LABS: BASOPHILS # (AUTO) 0.1 10^3/uL (0.0-0.1); BASOPHILS % (AUTO) 1 % (0-10); EOSINOPHILS # (AUTO) 0.6 10^3/uL (0.0-0.3); EOSINOPHILS % (AUTO) 4 % (0-10); LYMPHOCYTES # (AUTO) 2.7 X 10^3 (1.0-4.0); LYMPHOCYTES % (AUTO) 18 % (12-44); MEAN CORPUSCULAR HEMOGLOBIN 30 PG (25-34); MEAN CORPUSCULAR HGB CONC 34 G/DL (32-36); MEAN CORPUSCULAR VOLUME 88 FL (80-99); MONOCYTES # (AUTO) 1.3 X 10^3 (0.0-1.0); MONOCYTES % (AUTO) 9 % (0-12); NEUTROPHILS # (AUTO) 10.4 X 10^3 (1.8-7.8); NEUTROPHILS % (AUTO) 69 % (42-75); PLATELET COUNT 267 10^3/uL (130-400); RED BLOOD COUNT 3.95 10^6/uL (4.35-5.85); RED CELL DISTRIBUTION WIDTH 13.3 % (10.0-14.5)
[2016-04-02 05:47] LABS: ANION GAP 10 MMOL/L (5-14); BLOOD UREA NITROGEN 22 MG/DL (7-18); BUN/CREATININE RATIO 18; CALCIUM 8.3 MG/DL (8.5-10.1); CARBON DIOXIDE 21 MMOL/L (21-32); CHLORIDE 108 MMOL/L (98-107); CREATININE SERUM 1.19 MG/DL (0.60-1.30); GFR ESTIMATED > 60; GLUCOSE 176 MG/DL (70-105); MAGNESIUM 2.1 MG/DL (1.8-2.4); PHOSPHORUS 3.4 MG/DL (2.3-4.7); POTASSIUM 4.4 MMOL/L (3.6-5.0); SODIUM 139 MMOL/L (135-145)
[2016-04-02 08:00] VITALS: BP 138/93
[2016-04-02] MEDS: PANTOPRAZOLE 40 MG/10 ML (PROTONIX) VIAL IVP SCH (09:28)
[2016-04-02] MEDS: VANCOMYCIN IV ADD-VANTAGE 1,000 MG in SODIUM CHLORIDE (ADD-VANTAGE) 250 ML IV SCH (09:29)
[2016-04-02] MEDS: ATENOLOL 50 MG (TENORMIN) TAB PO SCH (09:29)
[2016-04-02] MEDS: fentaNYL INJECTION 100 MCG/2 ML AMP IVP PRN (09:33)
[2016-04-02] MEDS: inSUlin (REGULAR) HUMAN 1 UNIT/0.01 ML (CHARGE PER UNIT) SC SCH ×2 (09:45→21:15)
--- NOTE | 2016-04-02 10:30 | Progress Note-Standard ---
Standard Progress Note Progress Notes/Assess & Plan Progress/Assessment & Plan 03/22/16"uneventful postoperative night. Pain control reasonable. 4 motivation with incentive spirometry encouraged. Vital signs stable. Will continue ICU care for 24 hours. Byers catheter to stay for 2 weeks due to colovesical fistula. Cystogram will be obtained at the end of 2 weeks before catheter is removed. will be transferred the floor tomorrow 03/23/16:nnausea and vomiting early this morning. No abdominal distention. Vital signs stable. Incisions dry. TPN today, postoperative ileus anticipated. Continue Reglan and transferred to the floor 03/24/16:recurrent vomiting of large volumes of bilious fluid. Postoperative ileus versus early small bowel obstruction. Nasogastric tube placed returning bile stained contents. Erythema around the incision. We will use antibiotics in anticipation of wound infection. Continue TPN. Hypokalemia, being corrected. 03/25/16:postoperative ileus continues. Erythema around the incision contained. Has not passed flatus. We'll continue TPN. If unresolved, contrast study will be obtained 03/26/16:patient reports passing flatus having bowel movements. NG tube extruded spontaneously last night. No abdominal distention. Erythema around the incision increased. Vancomycin added. May require opening of the incision in 24-40 hours. We'll start clear liquids 03/27/16: Subcutaneous fluid collection drained under local anesthetic at the bedside. Wound VAC requested. Having bowel movements. Continue IV antibiotics 03/28/16:1 episode of vomiting last night, small bowel contrast study in progress dilated small bowel loops observed on the earlier studies. Patient reports passing stools will continue TPN and observe 03/29/16: Small bowel contrast study negative for mechanical obstruction. Drainage from the wound better. Afebrile. We will initiate clear liquids and observe. TPN will be continued for now 03/30/16:improving. Having liquid stools. No abdominal distention. Minimal drainage from the wound. Cystogram on Saturday and possibly discharge in 1-2 days thereafter 04/02/16:no abdominal distention. Having bowel movements. Sanguinous drainage from the wound. Cystogram pending. Possible discharge in 1-2 days. Advance diet and stop TPN today Final Diagnosis colovesical fistula CLARKE SORIANO MD Apr 02, 2016 10:30
[2016-04-02] MEDS ORDERED: IOHEXOL 350 MG/ML 100 ML (OMNIPAQUE 350) VIAL IV ONE (12:00)
--- NOTE | 2016-04-02 12:34 | Diagnostic Imaging Report ---
PROCEDURE; CT pelvis with and without contrast. TECHNIQUE: CT imaging was obtained from the iliac crest to the lesser trochanters. Repeat imaging was performed after intravesical contrast administration. INDICATION: Status post colovesical fistula repair. 75 mL of Omnipaque 350 is administered intravenously. FINDINGS: Baseline scan without contrast is performed demonstrating a small amount of air in the urinary bladder lumen with a Byers catheter in place. There is hyperdense material or layering tiny stones seen in the urinary bladder. After administration of contrast there is good distention of the urinary bladder with no evidence of abnormal leakage. There is no evidence of a tear, fistula, or free extravasation of contrast. The urinary bladder wall and mucosal lining appear unremarkable. There is an area soft tissue thickening seen along the anterior left aspect of the urinary bladder which may relate to postsurgical findings of the bladder wall or fistula repair. Anastomotic sutures at the level of the sigmoid colon are noted. Correlate with surgical findings. No significant free fluid or fluid collection in the pelvis seen. The osseous structures appear grossly unremarkable. IMPRESSION: No evidence of a colovesical fistula or urine leak. Dictated by: Dictated on workstation # [id number]
[2016-04-02] MEDS ORDERED: HYDR-3812 PO (15:19)
--- NOTE | 2016-04-02 15:23 | Discharge Inst-Simple/Standard ---
Discharge Inst-Standard Discharge Medications New, Converted or Re-Newed RX: RX on Chart Patient Instructions/Follow Up Plan of Care/Instructions/FU: Home health to change dressing once a day. F/U in 2 weeks. Please remove the central line before discharge Activity as Tolerated: No Goal: No lifting over 10 lb Discharge Diet: No Restrictions CLARKE SORIANO MD Apr 02, 2016 15:23
[2016-04-02 16:10] VITALS: BP 151/84
[2016-04-02] MEDS: ENOXAPARIN 40 MG/0.4 ML (LOVENOX) SYR SC SCH (18:38)
[2016-04-02] MEDS: CIPROFLOXACIN 500 MG (CIPRO) TABLET PO SCH (20:46)
[2016-04-02 23:02] VITALS: BP 161/92
[2016-04-03] MEDS: METOCLOPRAMIDE INJ 10 MG/2 ML (REGLAN) IVP SCH ×2 (05:26→11:41)
[2016-04-03 05:45] LABS: BASOPHILS # (AUTO) 0.1 10^3/uL (0.0-0.1); BASOPHILS % (AUTO) 1 % (0-10); EOSINOPHILS # (AUTO) 0.6 10^3/uL (0.0-0.3); EOSINOPHILS % (AUTO) 4 % (0-10); LYMPHOCYTES % (AUTO) 19 % (12-44); MEAN CORPUSCULAR HEMOGLOBIN 30 PG (25-34); MEAN CORPUSCULAR HGB CONC 33 G/DL (32-36); MEAN CORPUSCULAR VOLUME 89 FL (80-99); MEAN PLATELET VOLUME 10.9 FL (7.4-10.4); MONOCYTES # (AUTO) 1.4 X 10^3 (0.0-1.0); MONOCYTES % (AUTO) 9 % (0-12); NEUTROPHILS # (AUTO) 10.7 X 10^3 (1.8-7.8); NEUTROPHILS % (AUTO) 68 % (42-75); PLATELET COUNT 276 10^3/uL (130-400); RED BLOOD COUNT 4.02 10^6/uL (4.35-5.85); RED CELL DISTRIBUTION WIDTH 13.5 % (10.0-14.5); WHITE BLOOD COUNT 15.8 10^3/uL (4.3-11.0)
[2016-04-03 06:02] LABS: ANION GAP 10 MMOL/L (5-14); BLOOD UREA NITROGEN 20 MG/DL (7-18); BUN/CREATININE RATIO 19; CALCIUM 8.7 MG/DL (8.5-10.1); CARBON DIOXIDE 21 MMOL/L (21-32); CHLORIDE 107 MMOL/L (98-107); CREATININE SERUM 1.04 MG/DL (0.60-1.30); GFR ESTIMATED > 60; GLUCOSE 155 MG/DL (70-105); MAGNESIUM 1.8 MG/DL (1.8-2.4); PHOSPHORUS 3.7 MG/DL (2.3-4.7); POTASSIUM 4.3 MMOL/L (3.6-5.0); SODIUM 138 MMOL/L (135-145)
--- NOTE | 2016-04-03 09:03 | Progress Note-Standard ---
Standard Progress Note Progress Notes/Assess & Plan Progress/Assessment & Plan 03/22/16"uneventful postoperative night. Pain control reasonable. 4 motivation with incentive spirometry encouraged. Vital signs stable. Will continue ICU care for 24 hours. Byers catheter to stay for 2 weeks due to colovesical fistula. Cystogram will be obtained at the end of 2 weeks before catheter is removed. will be transferred the floor tomorrow 03/23/16:nnausea and vomiting early this morning. No abdominal distention. Vital signs stable. Incisions dry. TPN today, postoperative ileus anticipated. Continue Reglan and transferred to the floor 03/24/16:recurrent vomiting of large volumes of bilious fluid. Postoperative ileus versus early small bowel obstruction. Nasogastric tube placed returning bile stained contents. Erythema around the incision. We will use antibiotics in anticipation of wound infection. Continue TPN. Hypokalemia, being corrected. 03/25/16:postoperative ileus continues. Erythema around the incision contained. Has not passed flatus. We'll continue TPN. If unresolved, contrast study will be obtained 03/26/16:patient reports passing flatus having bowel movements. NG tube extruded spontaneously last night. No abdominal distention. Erythema around the incision increased. Vancomycin added. May require opening of the incision in 24-40 hours. We'll start clear liquids 03/27/16: Subcutaneous fluid collection drained under local anesthetic at the bedside. Wound VAC requested. Having bowel movements. Continue IV antibiotics 03/28/16:1 episode of vomiting last night, small bowel contrast study in progress dilated small bowel loops observed on the earlier studies. Patient reports passing stools will continue TPN and observe 03/29/16: Small bowel contrast study negative for mechanical obstruction. Drainage from the wound better. Afebrile. We will initiate clear liquids and observe. TPN will be continued for now 03/30/16:improving. Having liquid stools. No abdominal distention. Minimal drainage from the wound. Cystogram on Saturday and possibly discharge in 1-2 days thereafter 04/02/16:no abdominal distention. Having bowel movements. Sanguinous drainage from the wound. Cystogram pending. Possible discharge in 1-2 days. Advance diet and stop TPN today 04/03/16: Exam unchanged. Home on [facility] . Final Diagnosis Colovesical fistula CLARKE SORIANO MD Apr 03, 2016 09:03
[2016-04-03] MEDS ORDERED: FLU TRIvalent (5 YOA+) 2016-17 (AFLURIA) 0.5 ML IM ONE (10:05)
[2016-04-03] MEDS: CIPROFLOXACIN 500 MG (CIPRO) TABLET PO SCH (10:31)
[2016-04-03] MEDS: ATENOLOL 50 MG (TENORMIN) TAB PO SCH (10:31)
[2016-04-03] MEDS: inSUlin (REGULAR) HUMAN 1 UNIT/0.01 ML (CHARGE PER UNIT) SC SCH (10:31)
[2016-04-03] MEDS ORDERED: SULF1TAB35 PO (10:32)
[2016-04-03] MEDS ORDERED: CIPR-225 PO (10:32)
--- NOTE | 2016-04-03 11:34 | DISCHARGE SUMMARY ---
DATE OF ADMISSION: 03/21/2016 DATE OF DISCHARGE: 04/03/2016 DIAGNOSIS: 1. Colovesical fistula. 2. Cholelithiasis. OPERATION: Left hemicolectomy with primary anastomosis/cholecystectomy This gentleman was found to have a colovesical fistula due to diverticular disease. Incidental, asymptomatic gallstones were also discovered during the evaluation. He underwent left hemicolectomy with primary anastomosis to address the fistula combined with concomitant cholecystectomy. He has made a reasonable recovery. CT cystogram has been obtained with no extravasation of contrast. The Byers catheter has therefore been removed. He suffered postoperative ileus that has since resolved. The central aspect of his laparotomy wound has minimal infection and drainage; therefore, home health will be arranged to facilitate wound management. He will be followed up in 2 weeks. During the hospital course, he was found to be hypertension and therefore atenolol has been prescribed. Job ID: [id number] Dictated Date: 04/02/2016 15:23:20 [employer] Date: 04/03/2016 11:31:10/berry HUI
[2016-04-03 13:30] VITALS: BP 154/88
== END 2016-04-03 13:25 | disposition home health service (06) | DRG 330 ==
LOC: 4TH 06:00 → SURG 06:01 → ICU 17:15 → 4TH 03-24 17:55
PROVIDERS: ADMIT Surgery; ATTEND Surgery
PROC: 0WJP4ZZ Inspection of Gastrointestinal Tract, Percutaneous Endoscopic Approach (ICD-10-PCS; 2016-03-21)
PROC: 8E0W4CZ Robotic Assisted Procedure of Trunk Region, Percutaneous Endoscopic Approach (ICD-10-PCS; 2016-03-21)
PROC: 0FT40ZZ Resection of Gallbladder, Open Approach (ICD-10-PCS; principal; 2016-03-21 07:49)
PROC: 0DTL0ZZ Resection of Transverse Colon, Open Approach (ICD-10-PCS; 2016-03-21 07:49)
DX: K63.2 Fistula of intestine (principal); K91.3 Postprocedural intestinal obstruction; K57.30 Diverticulosis of large intestine without perforation or abscess without bleeding; T81.4XXA Infection following a procedure, initial encounter; K80.20 Calculus of gallbladder without cholecystitis without obstruction; E87.6 Hypokalemia; I10 Essential (primary) hypertension; Z23 Encounter for immunization
CPT/HCPCS: 36415; 71010; 72194; 74250; 80048; 80053; 80202; 82962; 83735; 84100; 84134; 84478; 85007; 85025; 85027; 85610; 86850; 86900; 86901; 87070; 87077; 87186; 87205; 88304; 88307; 94002

== ENCOUNTER → 2018-03-14 | Outpatient (CLI) | payer BC ==
[~2018-03-14] MED LIST changes: +ACHD5005 PO; +CIPR-225 PO; +SULF1TAB35 PO
--- NOTE | 2018-03-14 17:56 | Diagnostic Imaging Report ---
INDICATION: Left testicular pain. COMPARISON: None available. TECHNIQUE: Grayscale, color Doppler, and spectral Doppler imaging of the scrotum and its contents was performed in various projections. FINDINGS: The left testis measures 3.5 x 2.9 x 2.4 cm. It demonstrates mild heterogeneous echogenicity, but there is no mass present. Blood flow is present within the left testicle, and the blood flow has increased relative to the right side. Additionally, there is mild heterogeneous thickening of the left epididymis which is hypervascular in nature. Small left hydrocele is seen and simple in appearance. No varicocele on the left. The right testis measures 4.7 x 2.5 x 3.4 cm. It is normal in echogenicity and without mass. Normal blood flow is present within the right testis by color Doppler imaging. Trace right hydrocele is likely physiologic. No varicocele. IMPRESSION: 1. No testicular torsion on either side. 2. Heterogeneity and hypervascularity of the left testicle and epididymis may relate to epididymitis-orchitis. Dictated by: Dictated on workstation # [id number]
== END ==
LOC: RAD 15:40
PROVIDERS: ATTEND Nurse Practitioner Family
DX: N50.812 Left testicular pain (principal); N50.89 Other specified disorders of the male genital organs
CPT/HCPCS: 76870